=== PATIENT | female | born 1975 | race American Indian/Alaskan Native ===

== ENCOUNTER 2017-04-19 18:37 | Inpatient (IN) | payer OTHER ==
[2017-04-19 19:32] LABS: Hematocrit 36.6 % (30.3-42.9); Hemoglobin 12.3 gm/dl (10.1-14.3); Mean Corpuscular HGB Conc 34 % (30-34); Mean Corpuscular Hemoglobin 29 pg (28-32); Mean Corpuscular Volume 88 fl (79-97); Platelet Count 369 K/mm3 (140-440); Red Blood Count 4.18 M/mm3 (3.65-5.03); Red Cell Distribution Width 14.1 % (13.2-15.2); White Blood Count 17.7 K/mm3 (4.5-11.0)
[2017-04-19 19:48] LABS: Anion Gap 23 mmol/L; BUN/Creatinine Ratio 14; Blood Urea Nitrogen 7 mg/dL (7-17); Calcium 9.5 mg/dL (8.4-10.2); Carbon Dioxide 18 mmol/L (22-30); Chloride 97.4 mmol/L (98-107); Glucose 283 mg/dL (65-100); Potassium 3.2 mmol/L (3.6-5.0); Sodium 135 mmol/L (137-145)
--- NOTE | 2017-04-19 20:00 | Emergency Department Report ---
ED Psych HPI - General Chief Complaint: Psych Stated Complaint: SUICIDE ATTEMPT/ETOH Time Seen by Provider: 04/19/17 19:51 Source: patient, EMS Mode of arrival: Stretcher - History of Present Illness Initial Comments: Patient here after she was drinking took a handful of Advil Advil PM and some losartan here for evaluation of overdose and alcohol MD Complaint: suicidal ideation, feels depressed -: unknown Associated Psychiatric Symptoms: depression, suicidal ideation If Self Harm: admits thoughts of - Related Data Allergies Allergy/AdvReac Type Severity Reaction Status Date / Time metronidazole [From Flagyl] Allergy Unknown Verified 04/19/17 18:41 ED Review of Systems ROS: Stated complaint: SUICIDE ATTEMPT/ETOH Other details as noted in HPI Comment: Unobtainable due to pts medical conditions ED Past Medical Hx - Past Medical History Previous Medical History?: Yes Hx Hypertension: Yes - Social History Smoking Status: Unknown if ever smoked Substance Use Type: Alcohol ED Physical Exam - General Limitations: Altered Mental Status, Other - Head Head exam: Present: atraumatic - Eye Eye exam: Present: PERRL - Respiratory Respiratory exam: Absent: respiratory distress, accessory muscle use, decreased breath sounds - Cardiovascular Cardiovascular Exam: Present: regular rate, normal heart sounds - GI/Abdominal GI/Abdominal exam: Present: soft. Absent: distended, tenderness, guarding, rebound, rigid, mass - Rectal Rectal exam: Present: deferred - Back Exam Back exam: Present: normal inspection - Neurological Exam Neurological exam: Present: CN II-XII intact. Absent: motor sensory deficit - Skin Skin exam: Present: warm. Absent: urticaria ED Course Vital Signs 04/19/17 20:47 Pulse Rate 92 H Respiratory 21 Rate Blood Pressure 132/75 [Right] O2 Sat by Pulse 99 Oximetry - Reevaluation(s) Reevaluation #1: 04/19/17 21:19 Patient's case was discussed with poison center patient does admit Advil and advil pm and losartan/hctz at unknown time after drinking , here per ems on 1013 for psych eval and od Patient was noted to have repeat stable vital signs 1 3275 blood pressure 7% pulse is 92 respiration 21 EKG did show a prolonged QTC I did discuss case with poison center they are recommending admission given the prolonged half-life of the losartan and the risk of bottoming out her blood pressure as well as further evaluation of the prolonged QTC we will go ahead and give some potassium and check a mag and calcium level did discuss case Dr. Lerner was interventional radiologist for hospitalist service who will admit the patient ED Medical Decision Making - Lab Data Result diagrams: 04/19/17 19:19 04/19/17 19:19 - EKG Data -: EKG Interpreted by Me EKG shows normal: intervals (QTC prolongation), QRS complexes - Medical Decision Making Patient need admission for further evaluation of overdose with low bicarbonate aspirin and Tylenol levels negative patient will need correction of her potassium and further evaluation and observation Critical Care Time: Yes Critical care time in (mins) excluding proc time.: 30 Critical care attestation.: If time is entered above; I have spent that time in minutes in the direct care of this critically ill patient, excluding procedure time. ED Disposition Clinical Impression: Overdose Disposition: DC-[id number] OP ADMIT IP TO THIS HOSP Is pt being admited?: Yes Does the pt Need Aspirin: No Condition: Fair Time of Disposition: 21:25
[2017-04-19] MEDS ORDERED: HALDOL IM ONE (20:03)
[2017-04-19 20:09] LABS: Basophils % (Manual) 0 % (0.0-1.8); Blastocytes % (Manual) 0 %; Eosinophils % (Manual) 0 % (0.0-4.3)
[2017-04-19 20:10] LABS: Diff Status Complete; Large Platelets Few; RBC Morphology Normal
[2017-04-19 21:07] LABS: Urine Drugs of Abuse Note Disclamer
[2017-04-19] MEDS ORDERED: NACL 0.9% 1000 ML 1,000 ML IV ONE (21:10)
[2017-04-19 21:18] LABS: Bilirubin,Urine NEG (Negative); Blood,Urine NEG (Negative); Ketones,Urine TR mg/dL (Negative); Leukocyte Esterase,Urine NEG (Negative); Mucus,Urine FEW /HPF; Nitrite,Urine NEG (Negative)
[2017-04-19] MEDS ORDERED: TYLENOL PO PRN (21:40)
--- NOTE | 2017-04-19 21:43 | History and Physical Report ---
History of Present Illness Date of examination: 04/19/17 History of present illness: [id number] woman with multiple medical problems brought to emergency room because she took 5 Advil PM, unclear if she took any losartan and attempt to end her life. Patient is status post haldol, lethargic but arousable. History , Review Of Systems unable to obtain PAST MEDICAL HISTORY:none PAST SURGICAL HISTORY:none FAMILY HISTORY:Unknown SOCIAL HISTORY: Unknown Medications and Allergies Allergies Allergy/AdvReac Type Severity Reaction Status Date / Time metronidazole [From Flagyl] Allergy Unknown Verified 04/19/17 18:41 Active Meds: Active Medications Potassium Chloride (Kcl 10meq/100ml) 10 meq in 100 mls @ 100 mls/hr IV Q1H CHANTAL Stop: 04/19/17 23:59 Sodium Chloride (Nacl 0.9% 1000 Ml) 1,000 mls @ 999 mls/hr IV BOLUS ONE Stop: 04/19/17 22:10 Exam - Physical Exam Narrative exam: Gen. appearance: Patient lying in bed in no acute distress HEENT: Normocephalic/atraumatic, pupils equal round reactive to light, extra occular movement intact, no scleral icterus, no JVD or thyromegaly or nodule, neck is supple, mucous membrane moist, no erythema or exudate Heart: S1-S2, regular rate and rhythm Lungs: Clear to auscultation bilateral breathing comfortable Abdomen: Positive bowel sounds, nontender, nondistended, no organomegaly Extremities: No edema, cyanosis, clubbing Neuro:: lethargic Skin: No rash, nodules, warm dry - Constitutional Vitals: Temp Pulse Resp BP Pulse Ox 92 H 21 132/75 99 04/19/17 20:47 04/19/17 20:47 04/19/17 20:47 04/19/17 20:47 Results - Labs CBC & Chem 7: 04/20/17 04:06 04/20/17 04:57 Labs: Abnormal lab results 04/19/17 04/19/17 04/19/17 Range/Units 19:19 19:19 19:19 WBC (4.5-11.0) K/mm3 Lymphocytes % (Manual) (13.4-35.0) % Monocytes % (Manual) (0.0-7.3) % Seg Neutrophils # Man (1.8-7.7) K/mm3 Lymphocytes # (Manual) (1.2-5.4) K/mm3 Monocytes # (Manual) (0.0-0.8) K/mm3 Sodium 135 L (137-145) mmol/L Potassium 3.2 L (3.6-5.0) mmol/L Chloride 97.4 L (98-107) mmol/L Carbon Dioxide 18 L (22-30) mmol/L Creatinine 0.5 L (0.7-1.2) mg/dL Glucose 283 H (65-100) mg/dL Urine HCG, Qual (Negative) Salicylates < 0.3 L (2.8-20.0) mg/dL Plasma/Serum Alcohol 0.20 H (0-0.07) gm% 04/19/17 04/19/17 Range/Units 19:19 21:02 WBC 17.7 H (4.5-11.0) K/mm3 Lymphocytes % (Manual) 45.0 H (13.4-35.0) % Monocytes % (Manual) 9.0 H (0.0-7.3) % Seg Neutrophils # Man 8.1 H (1.8-7.7) K/mm3 Lymphocytes # (Manual) 8.0 H (1.2-5.4) K/mm3 Monocytes # (Manual) 1.6 H (0.0-0.8) K/mm3 Sodium (137-145) mmol/L Potassium (3.6-5.0) mmol/L Chloride (98-107) mmol/L Carbon Dioxide (22-30) mmol/L Creatinine (0.7-1.2) mg/dL Glucose (65-100) mg/dL Urine HCG, Qual Positive A (Negative) Salicylates (2.8-20.0) mg/dL Plasma/Serum Alcohol (0-0.07) gm% Assessment and Plan Assessment Drug overdose Suicide attempt Elevated blood sugar Leukocytosis most likely stress-induced Plan Admit medicine Start IV fluid, monitor on telemetry Check fingersticks, hemoglobin A1c Obtain blood cultures, start empiric Rocephin DVT prophylaxis
[2017-04-19] MEDS: KCL 10MEQ/100ML 10 MEQ/100 ML BAG IV SCH ×2 (21:44→23:55)
[2017-04-19] MEDS ORDERED: KCL 10MEQ/100ML 10 MEQ/100 ML BAG IV ONE (23:37)
[2017-04-19] MEDS: cefTRIAXone 1 GM in NACL 0.9% 20 ML IV SCH (23:54)
[2017-04-20] MEDS: CLARITIN PO PRN ×2 (02:28→10:37)
[2017-04-20] MEDS: NACL 0.9% 1000 ML 1,000 ML IV SCH ×2 (02:29→12:37)
[2017-04-20 04:49] LABS: Basophils % (Auto) 0.7 % (0.0-1.8); Eosinophils % (Auto) 1.6 % (0.0-4.3); Hematocrit 33.4 % (30.3-42.9); Hemoglobin 11.4 gm/dl (10.1-14.3); Mean Corpuscular HGB Conc 34 % (30-34); Mean Corpuscular Hemoglobin 29 pg (28-32); Mean Corpuscular Volume 86 fl (79-97); Platelet Count 306 K/mm3 (140-440); Red Blood Count 3.89 M/mm3 (3.65-5.03); Red Cell Distribution Width 14.2 % (13.2-15.2); White Blood Count 10.3 K/mm3 (4.5-11.0)
[2017-04-20 05:53] LABS: Anion Gap 25 mmol/L; BUN/Creatinine Ratio 13; Blood Urea Nitrogen 5 mg/dL (7-17); Calcium 8.9 mg/dL (8.4-10.2); Carbon Dioxide 17 mmol/L (22-30); Chloride 102.2 mmol/L (98-107); Glucose 139 mg/dL (65-100); Sodium 141 mmol/L (137-145)
--- NOTE | 2017-04-20 10:22 | Progress Note ---
Assessment and Plan Assessment and plan: --Positive test; quantitative hCG in thousands Check pelvic and transvaginal ultrasound [employer] RN consult, supportive care --Suicidal attempt; supportive care, 1013 status, psych evaluation --Alcohol intoxication; supportive care, strongly advised to quit alcohol intake --Hypertension; moderate control, continue current antihypertensives and when necessary medication --Morbid obesity counseling and patient advised diet modification and exercise as tolerated and weight reduction when medically stable --DVT prophylaxis; with Lovenox Follow CRITICAL CARE RN and psych evaluation and recommendations Continue 1013 status Possible discharge in 1-2 days if stable History Interval history: Patient seen and examined medical records reviewed Morbidly obese female patient was admitted with suicidal attempt and acute alcohol intoxication test is positive, Denies any knowledge of Alert awake oriented 3 not in acute distress Hospitalist Physical - Constitutional Vitals: Temp Pulse Resp BP Pulse Ox 97.4 F L 89 18 113/64 99 04/20/17 02:04 04/20/17 02:01 04/20/17 02:04 04/20/17 02:00 04/20/17 02:01 General appearance: Present: no acute distress, well-nourished, obese - EENT Eyes: Present: PERRL, EOM intact - Neck Neck: Present: supple, normal ROM - Respiratory Respiratory effort: normal Respiratory: bilateral: diminished, negative: rales, rhonchi, wheezing - Cardiovascular Rhythm: regular Heart Sounds: Present: S1 & S2 - Extremities Extremities: no ischemia, No edema - Abdominal General gastrointestinal: soft, non-tender, non-distended, normal bowel sounds - Integumentary Integumentary: Present: clear, warm - Psychiatric Psychiatric: appropriate mood/affect, cooperative - Neurologic Neurologic: CNII-XII intact, moves all extremities Results - Labs CBC & Chem 7: 04/20/17 04:06 04/20/17 04:57 Labs: Laboratory Last Values WBC 10.3 K/mm3 (4.5-11.0) 04/20/17 04:06 RBC 3.89 M/mm3 (3.65-5.03) 04/20/17 04:06 Hgb 11.4 gm/dl (10.1-14.3) 04/20/17 04:06 Hct 33.4 % (30.3-42.9) 04/20/17 04:06 MCV 86 fl (79-97) 04/20/17 04:06 MCH 29 pg (28-32) 04/20/17 04:06 MCHC 34 % (30-34) 04/20/17 04:06 RDW 14.2 % (13.2-15.2) 04/20/17 04:06 Plt Count 306 K/mm3 (140-440) 04/20/17 04:06 Lymph % (Auto) 36.0 % (13.4-35.0) H 04/20/17 04:06 [place] % (Auto) 8.6 % (0.0-7.3) H 04/20/17 04:06 Eos % (Auto) 1.6 % (0.0-4.3) 04/20/17 04:06 Baso % (Auto) 0.7 % (0.0-1.8) 04/20/17 04:06 Lymph # 3.7 K/mm3 (1.2-5.4) 04/20/17 04:06 [place] # 0.9 K/mm3 (0.0-0.8) H 04/20/17 04:06 Eos # 0.2 K/mm3 (0.0-0.4) 04/20/17 04:06 Baso # 0.1 K/mm3 (0.0-0.1) 04/20/17 04:06 Add Manual Diff Complete 04/19/17 19:19 Total Counted 100 04/19/17 19:19 Seg Neutrophils % 53.1 % (40.0-70.0) 04/20/17 04:06 Seg Neuts % (Manual) 46.0 % (40.0-70.0) 04/19/17 19:19 Band Neutrophils % 0 % 04/19/17 19:19 Lymphocytes % (Manual) 45.0 % (13.4-35.0) H 04/19/17 19:19 Reactive Lymphs % (Man) 0 % 04/19/17 19:19 Monocytes % (Manual) 9.0 % (0.0-7.3) H 04/19/17 19:19 Eosinophils % (Manual) 0 % (0.0-4.3) 04/19/17 19:19 Basophils % (Manual) 0 % (0.0-1.8) 04/19/17 19:19 Metamyelocytes % 0 % 04/19/17 19:19 Myelocytes % 0 % 04/19/17 19:19 Promyelocytes % 0 % 04/19/17 19:19 Blast Cells % 0 % 04/19/17 19:19 Nucleated RBC % Not Reportable 04/19/17 19:19 Seg Neutrophils # 5.5 K/mm3 (1.8-7.7) 04/20/17 04:06 Seg Neutrophils # Man 8.1 K/mm3 (1.8-7.7) H 04/19/17 19:19 Band Neutrophils # 0.0 K/mm3 04/19/17 19:19 Lymphocytes # (Manual) 8.0 K/mm3 (1.2-5.4) H 04/19/17 19:19 Abs React Lymphs (Man) 0.0 K/mm3 04/19/17 19:19 Monocytes # (Manual) 1.6 K/mm3 (0.0-0.8) H 04/19/17 19:19 Eosinophils # (Manual) 0.0 K/mm3 (0.0-0.4) 04/19/17 19:19 Basophils # (Manual) 0.0 K/mm3 (0.0-0.1) 04/19/17 19:19 Metamyelocytes # 0.0 K/mm3 04/19/17 19:19 Myelocytes # 0.0 K/mm3 04/19/17 19:19 Promyelocytes # 0.0 K/mm3 04/19/17 19:19 Blast Cells # 0.0 K/mm3 04/19/17 19:19 WBC Morphology Not Reportable 04/19/17 19:19 Hypersegmented Neuts Not Reportable 04/19/17 19:19 Hyposegmented Neuts Not Reportable 04/19/17 19:19 Hypogranular Neuts Not Reportable 04/19/17 19:19 Smudge Cells Not Reportable 04/19/17 19:19 Toxic Granulation Not Reportable 04/19/17 19:19 Toxic Vacuolation Not Reportable 04/19/17 19:19 Dohle Bodies Not Reportable 04/19/17 19:19 Pelger-Huet Anomaly Not Reportable 04/19/17 19:19 Gabbie Rods Not Reportable 04/19/17 19:19 Platelet Estimate Appears normal 04/19/17 19:19 Clumped Platelets Not Reportable 04/19/17 19:19 Plt Clumps, EDTA Not Reportable 04/19/17 19:19 Large Platelets Few 04/19/17 19:19 Giant Platelets Not Reportable 04/19/17 19:19 Platelet Satelliting Not Reportable 04/19/17 19:19 Plt Morphology Comment Not Reportable 04/19/17 19:19 RBC Morphology Normal 04/19/17 19:19 Dimorphic RBCs Not Reportable 04/19/17 19:19 Polychromasia Not Reportable 04/19/17 19:19 Hypochromasia Not Reportable 04/19/17 19:19 Poikilocytosis Not Reportable 04/19/17 19:19 Anisocytosis Not Reportable 04/19/17 19:19 Microcytosis Not Reportable 04/19/17 19:19 Macrocytosis Not Reportable 04/19/17 19:19 Spherocytes Not Reportable 04/19/17 19:19 Pappenheimer Bodies Not Reportable 04/19/17 19:19 Sickle Cells Not Reportable 04/19/17 19:19 Target Cells Not Reportable 04/19/17 19:19 Tear Drop Cells Not Reportable 04/19/17 19:19 Ovalocytes Not Reportable 04/19/17 19:19 Helmet Cells Not Reportable 04/19/17 19:19 [place] Bodies Not Reportable 04/19/17 19:19 [place] Rings Not Reportable 04/19/17 19:19 [place] Cells Not Reportable 04/19/17 19:19 Bite Cells Not Reportable 04/19/17 19:19 Crenated Cell Not Reportable 04/19/17 19:19 Elliptocytes Not Reportable 04/19/17 19:19 Acanthocytes (Spur) Not Reportable 04/19/17 19:19 Rouleaux Not Reportable 04/19/17 19:19 Hemoglobin C Crystals Not Reportable 04/19/17 19:19 Schistocytes Not Reportable 04/19/17 19:19 Malaria parasites Not Reportable 04/19/17 19:19 Blu Bodies Not Reportable 04/19/17 19:19 Hem Pathologist Commnt No 04/19/17 19:19 Sodium 141 mmol/L (137-145) 04/20/17 04:57 Potassium 3.0 mmol/L (3.6-5.0) L 04/20/17 04:57 Chloride 102.2 mmol/L (98-107) 04/20/17 04:57 Carbon Dioxide 17 mmol/L (22-30) L 04/20/17 04:57 Anion Gap 25 mmol/L 04/20/17 04:57 BUN 5 mg/dL (7-17) L 04/20/17 04:57 Creatinine 0.4 mg/dL (0.7-1.2) L 04/20/17 04:57 Estimated GFR > 60 ml/min 04/20/17 04:57 BUN/Creatinine Ratio 13 % 04/20/17 04:57 Glucose 139 mg/dL (65-100) H 04/20/17 04:57 Hemoglobin A1c 8.8 % (4-6) H 04/19/17 22:29 Osmolality 341 Mosm/kg 04/19/17 19:19 Calcium 8.9 mg/dL (8.4-10.2) 04/20/17 04:57 Magnesium 1.70 mg/dL (1.7-2.3) 04/19/17 19:19 Urine Color Yellow (Yellow) 04/19/17 21:02 Urine Turbidity Clear (Clear) 04/19/17 21:02 Urine pH 5.0 (5.0-7.0) 04/19/17 21:02 Ur Specific [place] 1.024 (1.003-1.030) 04/19/17 21:02 Urine Protein 30 mg/dl mg/dL (Negative) 04/19/17 21:02 Urine Glucose (UA) >=500 mg/dL (Negative) 04/19/17 21:02 Urine Ketones Tr mg/dL (Negative) 04/19/17 21:02 Urine Blood Neg (Negative) 04/19/17 21:02 Urine Nitrite Neg (Negative) 04/19/17 21:02 Urine Bilirubin Neg (Negative) 04/19/17 21:02 Urine Urobilinogen 2.0 mg/dL (<2.0) 04/19/17 21:02 Ur Leukocyte Esterase Neg (Negative) 04/19/17 21:02 Urine WBC (Auto) 4.0 /HPF (0.0-6.0) 04/19/17 21:02 Urine RBC (Auto) 2.0 /HPF (0.0-6.0) 04/19/17 21:02 U Epithel Cells (Auto) < 1.0 /HPF (0-13.0) 04/19/17 21:02 Urine Mucus Few /HPF 04/19/17 21:02 Urine HCG, Qual Positive (Negative) A 04/19/17 21:02 Salicylates < 0.3 mg/dL (2.8-20.0) L 04/19/17 21:29 Urine Opiates Screen Presumptive negative 04/19/17 21:02 Urine Methadone Screen Presumptive negative 04/19/17 21:02 Acetaminophen < 15.0 ug/mL (10.0-30.0) 04/19/17 21:29 Ur Barbiturates Screen Presumptive negative 04/19/17 21:02 Ur Phencyclidine Scrn Presumptive negative 04/19/17 21:02 Ur Amphetamines Screen Presumptive negative 04/19/17 21:02 U Benzodiazepines Scrn Presumptive negative 04/19/17 21:02 Urine Cocaine Screen Presumptive negative 04/19/17 21:02 U Marijuana (THC) Screen Presumptive negative 04/19/17 21:02 Drugs of Abuse Note Disclamer 04/19/17 21:02 Plasma/Serum Alcohol 0.20 gm% (0-0.07) H 04/19/17 19:19
[2017-04-20] MEDS: LOVENOX SUB-Q SCH (10:36)
[2017-04-20] MEDS ORDERED: K-DUR PO ONE (11:00)
[2017-04-20] MEDS: cefTRIAXone 1 GM in NACL 0.9% 20 ML IV SCH (12:39)
[2017-04-20] MEDS ORDERED: COZAAR PO SCH (13:00)
[2017-04-20] MEDS ORDERED: HCTZ PO SCH (13:00)
[2017-04-20] MEDS ORDERED: NORVASC PO SCH (13:00)
[2017-04-20] MEDS ORDERED: APRESOLINE IV PRN (13:37)
[2017-04-20] MEDS: APRESOLINE PO SCH ×2 (15:13→20:58)
--- NOTE | 2017-04-20 15:41 | Ultrasound Report ---
FINAL REPORT PROCEDURE: US OB > = 14 WEEKS FETUS TECHNIQUE: Real-time transabdominal sonography of the uterus, placenta, amniotic fluid, adnexa, and fetus was performed with image documentation. Measurements were obtained to determine age/size. M-mode Doppler was used to document heartbeat. CPT 49137 HISTORY: ? early /+ preg test COMPARISON: No prior studies are available for comparison. FINDINGS: There is a single living intrauterine gestation currently visualized in the transverse presentation head on the maternal left. heart rate of 155 beats per minute is detected. The amount of amniotic fluid subjectively appears normal. Normal amniotic fluid index measured at 12.1 centimeters. Placenta is located anterior grade 0. No evidence of placenta abruption or placenta previa. Cervix length 4.8 centimeters. Urinary bladder and stomach were visualized. Four-chamber view of the heart is unremarkable. Visualization of the spine is limited due to positioning. No gross abnormality is visualized. Cord insertion, three-vessel cord kidneys and intracranial contents as well as facial features were not seen today. MEASUREMENTS: BPD: 5.7 centimeters equals 23 week 2 days HC: 21.1 centimeter quit 23 week 1 day AC: 19.7 centimeter quit 24 week 3 days FL: 4.3 centimeter equals 23 weeks 6 days Estimated weight 654 grams +/-90 7 grams equals 1 pounds 7 ounces +/-3 ounces Average sonographic age by today's exam 23 week 5 days. This places EDC at 08/12/2017 +/-2 weeks. IMPRESSION: There is a single living intrauterine gestation currently transverse presentation head on the maternal left. Average sonographic age by today's exam 23 week 5 days placing the EDC at 08/12/2017 +/-2 weeks. Amount of amniotic fluid appears normal. No abnormalities are seen however visualization of the anatomy is limited. If clinically indicated follow-up exam could be performed to re-evaluate the anatomy.
[2017-04-20] MEDS: NOVOLOG SUB-Q SCH (22:43)
[2017-04-21] MEDS: APRESOLINE PO SCH ×5 (00:43→22:37)
[2017-04-21] MEDS: NACL 0.9% 1000 ML 1,000 ML IV SCH (02:47)
[2017-04-21] MEDS: NOVOLOG SUB-Q SCH ×3 (08:45→22:38)
[2017-04-21 10:16] LABS: Anion Gap 16 mmol/L; BUN/Creatinine Ratio 10; Blood Urea Nitrogen 4 mg/dL (7-17); Calcium 8.4 mg/dL (8.4-10.2); Carbon Dioxide 20 mmol/L (22-30); Glucose 150 mg/dL (65-100); Potassium 3.7 mmol/L (3.6-5.0); Sodium 136 mmol/L (137-145)
[2017-04-21] MEDS: LOVENOX SUB-Q SCH (10:40)
[2017-04-21] MEDS: ZOFRAN IV PRN (19:33)
--- NOTE | 2017-04-21 20:51 | Progress Note ---
Assessment and Plan Assessment and plan: --14 weeks ; continue supportive care Pending [facility] evaluation and recommendations --Hypertension; continue hydralazine by mouth, IV as needed --Suicide attempt; 1013 status, psych evaluation pending --Alcohol intoxication at the time of admission; patient now alert and awake Counseling done discussed the adverse effects of alcohol ,advised to quit alcohol Patient verbalized understanding --Morbid obesity counseling done --DVT prophylaxis; with Lovenox Follow [facility] [place] [place] and psych evaluation and recommendations Continue 1013 status Patient is medically stable for discharge Disposition per psych Plan of care discussed with the patient History Interval history: Patient seen and examined medical history is reviewed No new events reported by nursing staff Patient is 1, ultrasound consistent with 14 weeks fetus Pending [facility] [place] [place] evaluation . Patient has no new complaints Hospitalist Physical - Constitutional Vitals: Temp Pulse Resp BP Pulse Ox 98.3 F 90 18 157/101 100 04/21/17 19:52 04/21/17 19:52 04/21/17 19:52 04/21/17 19:52 04/21/17 19:52 General appearance: Present: no acute distress, well-nourished, obese - EENT Eyes: Present: PERRL, EOM intact - Neck Neck: Present: supple, normal ROM - Respiratory Respiratory effort: normal Respiratory: negative: rales, rhonchi, wheezing - Cardiovascular Rhythm: regular Heart Sounds: Present: S1 & S2 - Extremities Extremities: no ischemia, No edema - Abdominal General gastrointestinal: soft, non-tender, non-distended, normal bowel sounds - Integumentary Integumentary: Present: clear, warm - Psychiatric Psychiatric: appropriate mood/affect, cooperative - Neurologic Neurologic: CNII-XII intact, moves all extremities Results - Labs CBC & Chem 7: 04/20/17 04:06 04/21/17 09:46 Labs: Laboratory Last Values WBC 10.3 K/mm3 (4.5-11.0) 04/20/17 04:06 RBC 3.89 M/mm3 (3.65-5.03) 04/20/17 04:06 Hgb 11.4 gm/dl (10.1-14.3) 04/20/17 04:06 Hct 33.4 % (30.3-42.9) 04/20/17 04:06 MCV 86 fl (79-97) 04/20/17 04:06 MCH 29 pg (28-32) 04/20/17 04:06 MCHC 34 % (30-34) 04/20/17 04:06 RDW 14.2 % (13.2-15.2) 04/20/17 04:06 Plt Count 306 K/mm3 (140-440) 04/20/17 04:06 Lymph % (Auto) 36.0 % (13.4-35.0) H 04/20/17 04:06 [place] % (Auto) 8.6 % (0.0-7.3) H 04/20/17 04:06 Eos % (Auto) 1.6 % (0.0-4.3) 04/20/17 04:06 Baso % (Auto) 0.7 % (0.0-1.8) 04/20/17 04:06 Lymph # 3.7 K/mm3 (1.2-5.4) 04/20/17 04:06 [place] # 0.9 K/mm3 (0.0-0.8) H 04/20/17 04:06 Eos # 0.2 K/mm3 (0.0-0.4) 04/20/17 04:06 Baso # 0.1 K/mm3 (0.0-0.1) 04/20/17 04:06 Add Manual Diff Complete 04/19/17 19:19 Total Counted 100 04/19/17 19:19 Seg Neutrophils % 53.1 % (40.0-70.0) 04/20/17 04:06 Seg Neuts % (Manual) 46.0 % (40.0-70.0) 04/19/17 19:19 Band Neutrophils % 0 % 04/19/17 19:19 Lymphocytes % (Manual) 45.0 % (13.4-35.0) H 04/19/17 19:19 Reactive Lymphs % (Man) 0 % 04/19/17 19:19 Monocytes % (Manual) 9.0 % (0.0-7.3) H 04/19/17 19:19 Eosinophils % (Manual) 0 % (0.0-4.3) 04/19/17 19:19 Basophils % (Manual) 0 % (0.0-1.8) 04/19/17 19:19 Metamyelocytes % 0 % 04/19/17 19:19 Myelocytes % 0 % 04/19/17 19:19 Promyelocytes % 0 % 04/19/17 19:19 Blast Cells % 0 % 04/19/17 19:19 Nucleated RBC % Not Reportable 04/19/17 19:19 Seg Neutrophils # 5.5 K/mm3 (1.8-7.7) 04/20/17 04:06 Seg Neutrophils # Man 8.1 K/mm3 (1.8-7.7) H 04/19/17 19:19 Band Neutrophils # 0.0 K/mm3 04/19/17 19:19 Lymphocytes # (Manual) 8.0 K/mm3 (1.2-5.4) H 04/19/17 19:19 Abs React Lymphs (Man) 0.0 K/mm3 04/19/17 19:19 Monocytes # (Manual) 1.6 K/mm3 (0.0-0.8) H 04/19/17 19:19 Eosinophils # (Manual) 0.0 K/mm3 (0.0-0.4) 04/19/17 19:19 Basophils # (Manual) 0.0 K/mm3 (0.0-0.1) 04/19/17 19:19 Metamyelocytes # 0.0 K/mm3 04/19/17 19:19 Myelocytes # 0.0 K/mm3 04/19/17 19:19 Promyelocytes # 0.0 K/mm3 04/19/17 19:19 Blast Cells # 0.0 K/mm3 04/19/17 19:19 WBC Morphology Not Reportable 04/19/17 19:19 Hypersegmented Neuts Not Reportable 04/19/17 19:19 Hyposegmented Neuts Not Reportable 04/19/17 19:19 Hypogranular Neuts Not Reportable 04/19/17 19:19 Smudge Cells Not Reportable 04/19/17 19:19 Toxic Granulation Not Reportable 04/19/17 19:19 Toxic Vacuolation Not Reportable 04/19/17 19:19 Dohle Bodies Not Reportable 04/19/17 19:19 Pelger-Huet Anomaly Not Reportable 04/19/17 19:19 Gabbie Rods Not Reportable 04/19/17 19:19 Platelet Estimate Appears normal 04/19/17 19:19 Clumped Platelets Not Reportable 04/19/17 19:19 Plt Clumps, EDTA Not Reportable 04/19/17 19:19 Large Platelets Few 04/19/17 19:19 Giant Platelets Not Reportable 04/19/17 19:19 Platelet Satelliting Not Reportable 04/19/17 19:19 Plt Morphology Comment Not Reportable 04/19/17 19:19 RBC Morphology Normal 04/19/17 19:19 Dimorphic RBCs Not Reportable 04/19/17 19:19 Polychromasia Not Reportable 04/19/17 19:19 Hypochromasia Not Reportable 04/19/17 19:19 Poikilocytosis Not Reportable 04/19/17 19:19 Anisocytosis Not Reportable 04/19/17 19:19 Microcytosis Not Reportable 04/19/17 19:19 Macrocytosis Not Reportable 04/19/17 19:19 Spherocytes Not Reportable 04/19/17 19:19 Pappenheimer Bodies Not Reportable 04/19/17 19:19 Sickle Cells Not Reportable 04/19/17 19:19 Target Cells Not Reportable 04/19/17 19:19 Tear Drop Cells Not Reportable 04/19/17 19:19 Ovalocytes Not Reportable 04/19/17 19:19 Helmet Cells Not Reportable 04/19/17 19:19 Garvin-Agar Bodies Not Reportable 04/19/17 19:19 [place] Rings Not Reportable 04/19/17 19:19 [place] Cells Not Reportable 04/19/17 19:19 Bite Cells Not Reportable 04/19/17 19:19 Crenated Cell Not Reportable 04/19/17 19:19 Elliptocytes Not Reportable 04/19/17 19:19 Acanthocytes (Spur) Not Reportable 04/19/17 19:19 Rouleaux Not Reportable 04/19/17 19:19 Hemoglobin C Crystals Not Reportable 04/19/17 19:19 Schistocytes Not Reportable 04/19/17 19:19 Malaria parasites Not Reportable 04/19/17 19:19 Blu Bodies Not Reportable 04/19/17 19:19 Hem Pathologist Commnt No 04/19/17 19:19 Sodium 136 mmol/L (137-145) L 04/21/17 09:46 Potassium 3.7 mmol/L (3.6-5.0) D 04/21/17 09:46 Chloride 104.0 mmol/L (98-107) 04/21/17 09:46 Carbon Dioxide 20 mmol/L (22-30) L 04/21/17 09:46 Anion Gap 16 mmol/L 04/21/17 09:46 BUN 4 mg/dL (7-17) L 04/21/17 09:46 Creatinine 0.4 mg/dL (0.7-1.2) L 04/21/17 09:46 Estimated GFR > 60 ml/min 04/21/17 09:46 BUN/Creatinine Ratio 10 % 04/21/17 09:46 Glucose 150 mg/dL (65-100) H 04/21/17 09:46 POC Glucose 127 (70-105) H 04/21/17 12:25 Hemoglobin A1c 8.8 % (4-6) H 04/19/17 22:29 Osmolality 341 Mosm/kg 04/19/17 19:19 Calcium 8.4 mg/dL (8.4-10.2) 04/21/17 09:46 Magnesium 1.70 mg/dL (1.7-2.3) 04/19/17 19:19 HCG, Quant 9462 mIU/mL (0-4) H 04/20/17 10:26 Urine Color Yellow (Yellow) 04/19/17 21:02 Urine Turbidity Clear (Clear) 04/19/17 21:02 Urine pH 5.0 (5.0-7.0) 04/19/17 21:02 Ur Specific [place] 1.024 (1.003-1.030) 04/19/17 21:02 Urine Protein 30 mg/dl mg/dL (Negative) 04/19/17 21:02 Urine Glucose (UA) >=500 mg/dL (Negative) 04/19/17 21:02 Urine Ketones Tr mg/dL (Negative) 04/19/17 21:02 Urine Blood Neg (Negative) 04/19/17 21:02 Urine Nitrite Neg (Negative) 04/19/17 21:02 Urine Bilirubin Neg (Negative) 04/19/17 21:02 Urine Urobilinogen 2.0 mg/dL (<2.0) 04/19/17 21:02 Ur Leukocyte Esterase Neg (Negative) 04/19/17 21:02 Urine WBC (Auto) 4.0 /HPF (0.0-6.0) 04/19/17 21:02 Urine RBC (Auto) 2.0 /HPF (0.0-6.0) 04/19/17 21:02 U Epithel Cells (Auto) < 1.0 /HPF (0-13.0) 04/19/17 21:02 Urine Mucus Few /HPF 04/19/17 21:02 Urine HCG, Qual Positive (Negative) A 04/19/17 21:02 Salicylates < 0.3 mg/dL (2.8-20.0) L 04/19/17 21:29 Urine Opiates Screen Presumptive negative 04/19/17 21:02 Urine Methadone Screen Presumptive negative 04/19/17 21:02 Acetaminophen < 15.0 ug/mL (10.0-30.0) 04/19/17 21:29 Ur Barbiturates Screen Presumptive negative 04/19/17 21:02 Ur Phencyclidine Scrn Presumptive negative 04/19/17 21:02 Ur Amphetamines Screen Presumptive negative 04/19/17 21:02 U Benzodiazepines Scrn Presumptive negative 04/19/17 21:02 Urine Cocaine Screen Presumptive negative 04/19/17 21:02 U Marijuana (THC) Screen Presumptive negative 04/19/17 21:02 Drugs of Abuse Note Disclamer 04/19/17 21:02 Plasma/Serum Alcohol 0.20 gm% (0-0.07) H 04/19/17 19:19
[2017-04-22] MEDS: APRESOLINE PO SCH ×3 (08:17→21:51)
[2017-04-22] MEDS: NOVOLOG SUB-Q SCH ×3 (09:00→21:42)
--- NOTE | 2017-04-22 11:24 | Consultation ---
History of Present Illness - Reason for Consult Consult date: 04/22/17 Reason for consult: Mental Health Evaluation Requesting physician: MAHESH MARTINEZ - Chief Complaint Chief complaint: "I didn't try to harm myself" - History of Present Psychiatric Illness 41 y.o. AA female presenting to [facility] for taking multiple Advil pills. Today patient is calm and cooperative during the assessment. She stated having marital problems with her . She would not elaborate when asked to tell more about what is going on with her marriage. Per the data analytics specialist's note, its been infidelity in the marriage by the per the patient. Per the data analytics specialist 's note, the patient wanted to end her life when she took the Advil pills. She denies wanting to kill herself during our interview. She stated that she took 5 Advil pills to sleep, because she wanted some rest. She denies being depressed or having any prior manic episodes in the last couple days. She denies a mental health dx. She denies ever wanting to kill herself in the past. She admit to drinking alcohol when she took the pills. She denies recreational drug use. Medications and Allergies Allergies Allergy/AdvReac Type Severity Reaction Status Date / Time metronidazole [From Flagyl] Allergy Unknown Verified 04/19/17 18:41 Home Medications Medication Instructions Recorded Confirmed Last Taken Type Amlodipine Besylate [Norvasc] 10 mg PO DAILY 04/20/17 04/22/17 1 Day Ago History ~04/21/17 Losartan/Hydrochlorothiazide 1 each PO DAILY 04/20/17 04/22/17 1 Day Ago History [Losartan-Hctz 100-25 mg Tab] ~04/21/17 glipiZIDE [Glipizide] 10 mg PO DAILY 04/20/17 04/22/17 1 Day Ago History ~04/21/17 Active Meds: Active Medications Acetaminophen (Tylenol) 650 mg PO Q4H PRN PRN Reason: Pain MILD(1-3)/Fever >100.5/GONZALEZ Enoxaparin Sodium (Lovenox) 40 mg SUB-Q QDAY [facility] Last Admin: 04/21/17 10:40 Dose: 40 mg Hydralazine HCl (Apresoline) 10 mg IV Q4HR PRN PRN Reason: Hypertension >160/90 Hydralazine HCl (Apresoline) 25 mg PO Q8HR [facility] Insulin Aspart (Novolog) 0 units SUB-Q ACHS [facility] PRN Reason: Protocol Last Admin: 04/21/17 22:38 Dose: Not Given Ondansetron HCl (Zofran) 4 mg IV Q8H PRN PRN Reason: N/V unrelieved by Sophia Last Admin: 04/21/17 19:33 Dose: 4 mg Past psychiatric history - Past Medical History Past Medical History: other (14 weeks ) Past Surgical History: No surgical history - past Psychiatric treatment and history psychiatric treatment history: Denies a psy hx and afm psy hx. - Social History Social history: lives with family Mental Status Exam - Vital signs Last Vital Signs Temp 98.7 F 04/22/17 07:28 Pulse 91 H 04/22/17 08:17 Resp 20 04/22/17 07:28 BP 164/63 04/22/17 08:17 Pulse Ox 98 04/22/17 07:28 - Exam Narrative exam: MSE: Appearance: calm, cooperative Behavior: regular eye contact Speech: regular rate and tone Mood: "okay" Affect: congruent to mood Thought Process: circumstantial Thought Content: denies SI/HI's and AVH's Motor Activity: sitting up in bed Cognition: A/O x3 Insight: variable Judgment: variable Results Result Diagrams: 04/20/17 04:06 04/21/17 09:46 Abnormal lab results 04/21/17 04/21/17 04/21/17 Range/Units 07:20 12:25 16:39 POC Glucose 125 H 127 H 120 H (70-105) 04/21/17 04/22/17 Range/Units 21:37 09:44 POC Glucose 146 H 168 H (70-105) All other labs normal. Assessment and Plan Assessment and plan: Impression: Today patient is calm and cooperative during the assessment. Overdose attempt by taking 5 Advil pills. Patient is 14 weeks . Alcohol serum 0.20 on admission. DDx: R/O Mood DO, R/O Alcohol induced Mood DO Recommendation/Plan: Continue 1013 with placement to inpatient psy services. Gather collateral information from her spouse.
--- NOTE | 2017-04-22 14:24 | Consultation ---
History of Present Illness Consult date: 04/22/17 Requesting physician: MAHESH MARTINEZ Reason for consult: other ( ) History of present illness: Thank you kindly for the consult. Pt is a 41 year old female with LMP November 2016 who was initially admitted for suicide attempt with Tylenol PM and alcohol consumption after argument with her on 04/19/17. During her evaluation, a test was noted to be positive. An obstetric ultrasound was subsequently performed on 04/19/17 which showed a viable [place] IUP at 23w5d in transverse presentation; SAVAGE 12 cm; Anterior grade 0 placenta without evidence of abruption or previa, with cervical length 4.8 cm. Upon further questioning, the patient does report breast tenderness, amenorrhea and nausea but she did not attribute them to a possible . She denies vaginal bleeding, leakage of fluid or contractions. She now reports movement since this hospital admission. The patient has not been taking her anti -hypertensives at home, and has not seen a dragger recently since her move from [place], [place] to [place] two years ago. She has no family other than her here in [place]. She is excited to be and denies any desire to harm herself or commit suicide today. Past History Past Medical History: hypertension, diabetes, other (morbid obesity ) Past Surgical History: cholecystectomy, other (partial colectomy secondary to frequent diverticulitis; resolved after surgery ) Family/Genetic History: heart disease, hypertension Social history: no significant social history, - Obstetrical History Expected Date of Delivery: 08/12/17 Actual Gestation: 24 Week(s) 0 Day(s) Medications and Allergies Allergies Allergy/AdvReac Type Severity Reaction Status Date / Time metronidazole [From Flagyl] Allergy Unknown Verified 04/19/17 18:41 Home Medications Medication Instructions Recorded Confirmed Last Taken Type Amlodipine Besylate [Norvasc] 10 mg PO DAILY 04/20/17 04/22/17 1 Day Ago History ~04/21/17 Losartan/Hydrochlorothiazide 1 each PO DAILY 04/20/17 04/22/17 1 Day Ago History [Losartan-Hctz 100-25 mg Tab] ~04/21/17 glipiZIDE [Glipizide] 10 mg PO DAILY 04/20/17 04/22/17 1 Day Ago History ~04/21/17 Active Meds: Active Medications Acetaminophen (Tylenol) 650 mg PO Q4H PRN PRN Reason: Pain MILD(1-3)/Fever >100.5/GONZALEZ Enoxaparin Sodium (Lovenox) 40 mg SUB-Q QDAY [facility] Last Admin: 04/21/17 10:40 Dose: 40 mg Hydralazine HCl (Apresoline) 10 mg IV Q4HR PRN PRN Reason: Hypertension >160/90 Hydralazine HCl (Apresoline) 25 mg PO Q8HR [facility] Insulin Aspart (Novolog) 0 units SUB-Q ACHS [facility] PRN Reason: Protocol Last Admin: 04/21/17 22:38 Dose: Not Given Ondansetron HCl (Zofran) 4 mg IV Q8H PRN PRN Reason: N/V unrelieved by Sophia Last Admin: 04/21/17 19:33 Dose: 4 mg Review of Systems All systems: negative Gastrointestinal: nausea (per HPI ) - Vital Signs Vital signs: Vital Signs Pulse Resp Pulse Ox 129 H 25 H 97 04/19/17 19:18 04/19/17 19:18 04/19/17 19:18 Temp Pulse Resp BP Pulse Ox 98.7 F 91 H 20 164/63 98 04/22/17 07:28 04/22/17 08:17 04/22/17 07:28 04/22/17 08:17 04/22/17 07:28 - Physical Exam Breasts: Positive: deferred Cardiovascular: Regular rate Lungs: Positive: Clear to auscultation Abdomen: Positive: soft (obese ). Negative: tenderness Extremities: Positive: edema (pedal ) - Obstetrical FHR: auscultation normal Results Result Diagrams: 04/20/17 04:06 04/21/17 09:46 Abnormal lab results 04/21/17 04/21/17 04/22/17 Range/Units 16:39 21:37 09:44 POC Glucose 120 H 146 H 168 H (70-105) All other labs normal. Assessment and Plan A: Recently diagnosed intrauterine at 24w0d Recent suicide attempt with Tylenol PM and Alcohol Morbid Obesity Chronic Hypertension Pregestational Diabetes Mellitus Advanced Maternal Age Alcohol exposure Insufficient Care P: Currently, the patient does not have any reason to delay hospital discharge. While she is hospitalized, she should have heart tonees (please call labor and delivery nurse to perform) q 8 hrs. Ultrasound now to confirm viability Optimize anti-hypertensives preferrably with Labetalol, Methyldopa or Procardia XL Optimize blood glucose with insulin. Avoid oral hypoglycemics during . Pt should check fasting and two hour postprandials and keep a record of them vitamin daily Once discharged pt should establish care with co-management with maternal- medicine secondary to multiple comorbidities. Pt has been given contact information for [place] [facility] [employer]. Please contact me if any further information is needed.
--- NOTE | 2017-04-22 15:35 | Ultrasound Report ---
ULTRASOUND OB LIMITED History: well being Technique: Transabdominal ultrasound with Doppler interrogation. Gestation: Single Position: Breech Heart Rate: 154 BPM
--- NOTE | 2017-04-22 16:44 | Progress Note ---
Assessment and Plan Assessment and plan: --14 weeks ; continue supportive care BUSINESS SOLUTIONS ARCHITECT evaluation and recommendations noted and appreciated --Hypertension; continue hydralazine by mouth, IV as needed --Suicide attempt; 1013 status, psych recommends transfer to inpatient psych when medically stable --Alcohol intoxication at the time of admission; patient now alert and awake Counseling done discussed the adverse effects of alcohol ,advised to quit alcohol --Morbid obesity counseling done --DVT prophylaxis; with Lovenox Continue 1013 status Patient is medically stable for discharge Disposition psych recommends to continue 1013, transfer to inpatient psych when medically stable Plan of care discussed with the patient History Interval history: Patient seen and evaluated this morning medical records reviewed Patient feels better I discussed the case with psych PA, the patient is medically cleared Psych recommends inpatient psych transfer for further evaluation and management Patient is anxious to go home No new complaints Hospitalist Physical - Constitutional Vitals: Temp Pulse Resp BP Pulse Ox 98.7 F 91 H 20 164/63 98 04/22/17 07:28 04/22/17 08:17 04/22/17 07:28 04/22/17 08:17 04/22/17 07:28 General appearance: Present: no acute distress, well-nourished, obese - EENT Eyes: Present: PERRL, EOM intact - Neck Neck: Present: supple, normal ROM - Respiratory Respiratory effort: normal Respiratory: negative: rales, rhonchi, wheezing - Cardiovascular Rhythm: regular Heart Sounds: Present: S1 & S2 - Extremities Extremities: no ischemia, No edema - Abdominal General gastrointestinal: soft, non-tender, non-distended, normal bowel sounds - Integumentary Integumentary: Present: clear, warm - Psychiatric Psychiatric: appropriate mood/affect, cooperative - Neurologic Neurologic: CNII-XII intact, moves all extremities Results - Labs CBC & Chem 7: 04/20/17 04:06 04/21/17 09:46 Labs: Laboratory Last Values WBC 10.3 K/mm3 (4.5-11.0) 04/20/17 04:06 RBC 3.89 M/mm3 (3.65-5.03) 04/20/17 04:06 Hgb 11.4 gm/dl (10.1-14.3) 04/20/17 04:06 Hct 33.4 % (30.3-42.9) 04/20/17 04:06 MCV 86 fl (79-97) 04/20/17 04:06 MCH 29 pg (28-32) 04/20/17 04:06 MCHC 34 % (30-34) 04/20/17 04:06 RDW 14.2 % (13.2-15.2) 04/20/17 04:06 Plt Count 306 K/mm3 (140-440) 04/20/17 04:06 Lymph % (Auto) 36.0 % (13.4-35.0) H 04/20/17 04:06 [place] % (Auto) 8.6 % (0.0-7.3) H 04/20/17 04:06 Eos % (Auto) 1.6 % (0.0-4.3) 04/20/17 04:06 Baso % (Auto) 0.7 % (0.0-1.8) 04/20/17 04:06 Lymph # 3.7 K/mm3 (1.2-5.4) 04/20/17 04:06 [place] # 0.9 K/mm3 (0.0-0.8) H 04/20/17 04:06 Eos # 0.2 K/mm3 (0.0-0.4) 04/20/17 04:06 Baso # 0.1 K/mm3 (0.0-0.1) 04/20/17 04:06 Add Manual Diff Complete 04/19/17 19:19 Total Counted 100 04/19/17 19:19 Seg Neutrophils % 53.1 % (40.0-70.0) 04/20/17 04:06 Seg Neuts % (Manual) 46.0 % (40.0-70.0) 04/19/17 19:19 Band Neutrophils % 0 % 04/19/17 19:19 Lymphocytes % (Manual) 45.0 % (13.4-35.0) H 04/19/17 19:19 Reactive Lymphs % (Man) 0 % 04/19/17 19:19 Monocytes % (Manual) 9.0 % (0.0-7.3) H 04/19/17 19:19 Eosinophils % (Manual) 0 % (0.0-4.3) 04/19/17 19:19 Basophils % (Manual) 0 % (0.0-1.8) 04/19/17 19:19 Metamyelocytes % 0 % 04/19/17 19:19 Myelocytes % 0 % 04/19/17 19:19 Promyelocytes % 0 % 04/19/17 19:19 Blast Cells % 0 % 04/19/17 19:19 Nucleated RBC % Not Reportable 04/19/17 19:19 Seg Neutrophils # 5.5 K/mm3 (1.8-7.7) 04/20/17 04:06 Seg Neutrophils # Man 8.1 K/mm3 (1.8-7.7) H 04/19/17 19:19 Band Neutrophils # 0.0 K/mm3 04/19/17 19:19 Lymphocytes # (Manual) 8.0 K/mm3 (1.2-5.4) H 04/19/17 19:19 Abs React Lymphs (Man) 0.0 K/mm3 04/19/17 19:19 Monocytes # (Manual) 1.6 K/mm3 (0.0-0.8) H 04/19/17 19:19 Eosinophils # (Manual) 0.0 K/mm3 (0.0-0.4) 04/19/17 19:19 Basophils # (Manual) 0.0 K/mm3 (0.0-0.1) 04/19/17 19:19 Metamyelocytes # 0.0 K/mm3 04/19/17 19:19 Myelocytes # 0.0 K/mm3 04/19/17 19:19 Promyelocytes # 0.0 K/mm3 04/19/17 19:19 Blast Cells # 0.0 K/mm3 04/19/17 19:19 WBC Morphology Not Reportable 04/19/17 19:19 Hypersegmented Neuts Not Reportable 04/19/17 19:19 Hyposegmented Neuts Not Reportable 04/19/17 19:19 Hypogranular Neuts Not Reportable 04/19/17 19:19 Smudge Cells Not Reportable 04/19/17 19:19 Toxic Granulation Not Reportable 04/19/17 19:19 Toxic Vacuolation Not Reportable 04/19/17 19:19 Dohle Bodies Not Reportable 04/19/17 19:19 Pelger-Huet Anomaly Not Reportable 04/19/17 19:19 Gabbie Rods Not Reportable 04/19/17 19:19 Platelet Estimate Appears normal 04/19/17 19:19 Clumped Platelets Not Reportable 04/19/17 19:19 Plt Clumps, EDTA Not Reportable 04/19/17 19:19 Large Platelets Few 04/19/17 19:19 Giant Platelets Not Reportable 04/19/17 19:19 Platelet Satelliting Not Reportable 04/19/17 19:19 Plt Morphology Comment Not Reportable 04/19/17 19:19 RBC Morphology Normal 04/19/17 19:19 Dimorphic RBCs Not Reportable 04/19/17 19:19 Polychromasia Not Reportable 04/19/17 19:19 Hypochromasia Not Reportable 04/19/17 19:19 Poikilocytosis Not Reportable 04/19/17 19:19 Anisocytosis Not Reportable 04/19/17 19:19 Microcytosis Not Reportable 04/19/17 19:19 Macrocytosis Not Reportable 04/19/17 19:19 Spherocytes Not Reportable 04/19/17 19:19 Pappenheimer Bodies Not Reportable 04/19/17 19:19 Sickle Cells Not Reportable 04/19/17 19:19 Target Cells Not Reportable 04/19/17 19:19 Tear Drop Cells Not Reportable 04/19/17 19:19 Ovalocytes Not Reportable 04/19/17 19:19 Helmet Cells Not Reportable 04/19/17 19:19 [place] Bodies Not Reportable 04/19/17 19:19 [place] Rings Not Reportable 04/19/17 19:19 [place] Cells Not Reportable 04/19/17 19:19 Bite Cells Not Reportable 04/19/17 19:19 Crenated Cell Not Reportable 04/19/17 19:19 Elliptocytes Not Reportable 04/19/17 19:19 Acanthocytes (Spur) Not Reportable 04/19/17 19:19 Rouleaux Not Reportable 04/19/17 19:19 Hemoglobin C Crystals Not Reportable 04/19/17 19:19 Schistocytes Not Reportable 04/19/17 19:19 Malaria parasites Not Reportable 04/19/17 19:19 Blu Bodies Not Reportable 04/19/17 19:19 Hem Pathologist Commnt No 04/19/17 19:19 Sodium 136 mmol/L (137-145) L 04/21/17 09:46 Potassium 3.7 mmol/L (3.6-5.0) D 04/21/17 09:46 Chloride 104.0 mmol/L (98-107) 04/21/17 09:46 Carbon Dioxide 20 mmol/L (22-30) L 04/21/17 09:46 Anion Gap 16 mmol/L 04/21/17 09:46 BUN 4 mg/dL (7-17) L 04/21/17 09:46 Creatinine 0.4 mg/dL (0.7-1.2) L 04/21/17 09:46 Estimated GFR > 60 ml/min 04/21/17 09:46 BUN/Creatinine Ratio 10 % 04/21/17 09:46 Glucose 150 mg/dL (65-100) H 04/21/17 09:46 POC Glucose 168 (70-105) H 04/22/17 09:44 Hemoglobin A1c 8.8 % (4-6) H 04/19/17 22:29 Osmolality 341 Mosm/kg 04/19/17 19:19 Calcium 8.4 mg/dL (8.4-10.2) 04/21/17 09:46 Magnesium 1.70 mg/dL (1.7-2.3) 04/19/17 19:19 HCG, Quant 9462 mIU/mL (0-4) H 04/20/17 10:26 Urine Color Yellow (Yellow) 04/19/17 21:02 Urine Turbidity Clear (Clear) 04/19/17 21:02 Urine pH 5.0 (5.0-7.0) 04/19/17 21:02 Ur Specific [place] 1.024 (1.003-1.030) 04/19/17 21:02 Urine Protein 30 mg/dl mg/dL (Negative) 04/19/17 21:02 Urine Glucose (UA) >=500 mg/dL (Negative) 04/19/17 21:02 Urine Ketones Tr mg/dL (Negative) 04/19/17 21:02 Urine Blood Neg (Negative) 04/19/17 21:02 Urine Nitrite Neg (Negative) 04/19/17 21:02 Urine Bilirubin Neg (Negative) 04/19/17 21:02 Urine Urobilinogen 2.0 mg/dL (<2.0) 12/15/17 21:02 Ur Leukocyte Esterase Neg (Negative) 04/19/17 21:02 Urine WBC (Auto) 4.0 /HPF (0.0-6.0) 04/19/17 21:02 Urine RBC (Auto) 2.0 /HPF (0.0-6.0) 04/19/17 21:02 U Epithel Cells (Auto) < 1.0 /HPF (0-13.0) 04/19/17 21:02 Urine Mucus Few /HPF 04/19/17 21:02 Urine HCG, Qual Positive (Negative) A 04/19/17 21:02 Salicylates < 0.3 mg/dL (2.8-20.0) L 04/19/17 21:29 Urine Opiates Screen Presumptive negative 04/19/17 21:02 Urine Methadone Screen Presumptive negative 04/19/17 21:02 Acetaminophen < 15.0 ug/mL (10.0-30.0) 04/19/17 21:29 Ur Barbiturates Screen Presumptive negative 04/19/17 21:02 Ur Phencyclidine Scrn Presumptive negative 04/19/17 21:02 Ur Amphetamines Screen Presumptive negative 04/19/17 21:02 U Benzodiazepines Scrn Presumptive negative 04/19/17 21:02 Urine Cocaine Screen Presumptive negative 04/19/17 21:02 U Marijuana (THC) Screen Presumptive negative 04/19/17 21:02 Drugs of Abuse Note Disclamer 04/19/17 21:02 Plasma/Serum Alcohol 0.20 gm% (0-0.07) H 04/19/17 19:19
[2017-04-22] MEDS: LOVENOX SUB-Q SCH (16:45)
[2017-04-22] MEDS: ZOFRAN IV PRN (23:51)
[2017-04-23] MEDS: APRESOLINE PO SCH ×3 (08:46→21:51)
[2017-04-23] MEDS: NOVOLOG SUB-Q SCH ×4 (08:46→21:54)
--- NOTE | 2017-04-23 09:10 | Progress Note ---
Subjective - Reason for Consult Consult date: 04/23/17 Reason for consult: Psychiatry Follow-up - Chief Complaint Chief complaint: "Good morning" 41 y.o. AA female presenting to [facility] for taking multiple Advil pills. Today patient is calm and cooperative during the assessment. She stated doing some reflecting of her life since her admission. She stated that she does not consume alcohol, but was in the "moment" prior to her admission to [facility]. She stated that she would like to be referred to a therapist once she is discharged. She stated, "I have a long road ahead of me." She is adamant that she didn't know she was prior to her admission. She denies SI/HI's and AVH's. She stated sleeping well last night. Mental Status Exam - Vital signs Last Vital Signs Temp 98.3 F 04/23/17 07:28 Pulse 95 H 04/23/17 08:39 Resp 18 04/23/17 07:28 BP 141/76 04/23/17 07:28 Pulse Ox 99 04/23/17 07:28 - Exam Narrative exam: MSE: Appearance: calm, cooperative Behavior: regular eye contact Speech: regular rate and tone Mood: "okay" Affect: congruent to mood Thought Process: linear Thought Content: denies SI/HI's and AVH's Motor Activity: sitting up in bed Cognition: A/O x3 Insight: fair Judgment: fair Assessment and Plan Impression: Overdose of Advil pills (5). Marital problems with her spouse. Today patient is calm and cooperative during the assessment. Per FIELD TECHNICAL SPECIALIST - obstetric ultrasound was subsequently performed on 04/19/17 which showed a viable [place] IUP at 23w5d in transverse presentation. Alcohol serum 0.20 on admission. DDx: R/O Mood DO, R/O Alcohol induced Mood DO Recommendation/Plan: Continue 1013 with placement to inpatient psy services. Discussed generalized coping skills with patient. Discussed the importance to abstain from alcohol consumption while .
[2017-04-23] MEDS: LOVENOX SUB-Q SCH (10:44)
[2017-04-23] MEDS: PRENATAL VITAMIN PO SCH (10:45)
--- NOTE | 2017-04-23 15:06 | Progress Note ---
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 --Hypertension; well controlled continue hydralazine by mouth, IV as needed --Alcohol intoxication at the time of admission; stable, adversed to quit alcohol intake, --Morbid obesity counseling done --DVT prophylaxis; with Lovenox Continue 1013 status Patient is medically stable for discharge 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 Disposition per psych,recommends to continue 1013, transfer to inpatient psych Plan of care discussed with the patient History Interval history: Patient seen and evaluated medical records reviewed On events reported HORSE EXERCISER evaluation noted Medically, gynecological history stable for discharge Patient is on 1013 status, psych following Hospitalist Physical - Constitutional Vitals: Temp Pulse Resp BP Pulse Ox 98.3 F 95 H 18 141/76 99 04/23/17 07:28 04/23/17 08:39 04/23/17 07:28 04/23/17 07:28 04/23/17 07:28 General appearance: Present: no acute distress, well-nourished, obese - EENT Eyes: Present: PERRL, EOM intact - Neck Neck: Present: supple, normal ROM - Respiratory Respiratory effort: normal Respiratory: bilateral: diminished, negative: rales, rhonchi, wheezing - Cardiovascular Rhythm: regular Heart Sounds: Present: S1 & S2 - Extremities Extremities: no ischemia, pulses intact Peripheral Pulses: within normal limits - Abdominal General gastrointestinal: soft, non-tender, non-distended, normal bowel sounds - Integumentary Integumentary: Present: clear, warm - Psychiatric Psychiatric: appropriate mood/affect, cooperative - Neurologic Neurologic: CNII-XII intact, moves all extremities Results - Labs CBC & Chem 7: 04/20/17 04:06 04/21/17 09:46 Labs: Laboratory Last Values WBC 10.3 K/mm3 (4.5-11.0) 04/20/17 04:06 RBC 3.89 M/mm3 (3.65-5.03) 04/20/17 04:06 Hgb 11.4 gm/dl (10.1-14.3) 04/20/17 04:06 Hct 33.4 % (30.3-42.9) 04/20/17 04:06 MCV 86 fl (79-97) 04/20/17 04:06 MCH 29 pg (28-32) 04/20/17 04:06 MCHC 34 % (30-34) 04/20/17 04:06 RDW 14.2 % (13.2-15.2) 04/20/17 04:06 Plt Count 306 K/mm3 (140-440) 04/20/17 04:06 Lymph % (Auto) 36.0 % (13.4-35.0) H 04/20/17 04:06 [place] % (Auto) 8.6 % (0.0-7.3) H 04/20/17 04:06 Eos % (Auto) 1.6 % (0.0-4.3) 04/20/17 04:06 Baso % (Auto) 0.7 % (0.0-1.8) 04/20/17 04:06 Lymph # 3.7 K/mm3 (1.2-5.4) 04/20/17 04:06 [place] # 0.9 K/mm3 (0.0-0.8) H 04/20/17 04:06 Eos # 0.2 K/mm3 (0.0-0.4) 04/20/17 04:06 Baso # 0.1 K/mm3 (0.0-0.1) 04/20/17 04:06 Add Manual Diff Complete 04/19/17 19:19 Total Counted 100 04/19/17 19:19 Seg Neutrophils % 53.1 % (40.0-70.0) 04/20/17 04:06 Seg Neuts % (Manual) 46.0 % (40.0-70.0) 04/19/17 19:19 Band Neutrophils % 0 % 04/19/17 19:19 Lymphocytes % (Manual) 45.0 % (13.4-35.0) H 04/19/17 19:19 Reactive Lymphs % (Man) 0 % 04/19/17 19:19 Monocytes % (Manual) 9.0 % (0.0-7.3) H 04/19/17 19:19 Eosinophils % (Manual) 0 % (0.0-4.3) 04/19/17 19:19 Basophils % (Manual) 0 % (0.0-1.8) 04/19/17 19:19 Metamyelocytes % 0 % 04/19/17 19:19 Myelocytes % 0 % 04/19/17 19:19 Promyelocytes % 0 % 04/19/17 19:19 Blast Cells % 0 % 04/19/17 19:19 Nucleated RBC % Not Reportable 04/19/17 19:19 Seg Neutrophils # 5.5 K/mm3 (1.8-7.7) 04/20/17 04:06 Seg Neutrophils # Man 8.1 K/mm3 (1.8-7.7) H 04/19/17 19:19 Band Neutrophils # 0.0 K/mm3 04/19/17 19:19 Lymphocytes # (Manual) 8.0 K/mm3 (1.2-5.4) H 04/19/17 19:19 Abs React Lymphs (Man) 0.0 K/mm3 04/19/17 19:19 Monocytes # (Manual) 1.6 K/mm3 (0.0-0.8) H 04/19/17 19:19 Eosinophils # (Manual) 0.0 K/mm3 (0.0-0.4) 04/19/17 19:19 Basophils # (Manual) 0.0 K/mm3 (0.0-0.1) 04/19/17 19:19 Metamyelocytes # 0.0 K/mm3 04/19/17 19:19 Myelocytes # 0.0 K/mm3 04/19/17 19:19 Promyelocytes # 0.0 K/mm3 04/19/17 19:19 Blast Cells # 0.0 K/mm3 04/19/17 19:19 WBC Morphology Not Reportable 04/19/17 19:19 Hypersegmented Neuts Not Reportable 04/19/17 19:19 Hyposegmented Neuts Not Reportable 04/19/17 19:19 Hypogranular Neuts Not Reportable 04/19/17 19:19 Smudge Cells Not Reportable 04/19/17 19:19 Toxic Granulation Not Reportable 04/19/17 19:19 Toxic Vacuolation Not Reportable 04/19/17 19:19 Dohle Bodies Not Reportable 04/19/17 19:19 Pel[place]uet Anomaly Not Reportable 04/19/17 19:19 Gabbie Rods Not Reportable 04/19/17 19:19 Platelet Estimate Appears normal 04/19/17 19:19 Clumped Platelets Not Reportable 04/19/17 19:19 Plt Clumps, EDTA Not Reportable 04/19/17 19:19 Large Platelets Few 04/19/17 19:19 Giant Platelets Not Reportable 04/19/17 19:19 Platelet Satelliting Not Reportable 04/19/17 19:19 Plt Morphology Comment Not Reportable 04/19/17 19:19 RBC Morphology Normal 04/19/17 19:19 Dimorphic RBCs Not Reportable 04/19/17 19:19 Polychromasia Not Reportable 04/19/17 19:19 Hypochromasia Not Reportable 04/19/17 19:19 Poikilocytosis Not Reportable 04/19/17 19:19 Anisocytosis Not Reportable 04/19/17 19:19 Microcytosis Not Reportable 04/19/17 19:19 Macrocytosis Not Reportable 04/19/17 19:19 Spherocytes Not Reportable 04/19/17 19:19 Pappenheimer Bodies Not Reportable 04/19/17 19:19 Sickle Cells Not Reportable 04/19/17 19:19 Target Cells Not Reportable 04/19/17 19:19 Tear Drop Cells Not Reportable 04/19/17 19:19 Ovalocytes Not Reportable 04/19/17 19:19 Helmet Cells Not Reportable 04/19/17 19:19 [place] Bodies Not Reportable 04/19/17 19:19 [place] Rings Not Reportable 04/19/17 19:19 [place] Cells Not Reportable 04/19/17 19:19 Bite Cells Not Reportable 04/19/17 19:19 Crenated Cell Not Reportable 04/19/17 19:19 Elliptocytes Not Reportable 04/19/17 19:19 Acanthocytes (Spur) Not Reportable 04/19/17 19:19 Rouleaux Not Reportable 04/19/17 19:19 Hemoglobin C Crystals Not Reportable 04/19/17 19:19 Schistocytes Not Reportable 04/19/17 19:19 Malaria parasites Not Reportable 04/19/17 19:19 Blu Bodies Not Reportable 04/19/17 19:19 Hem Pathologist Commnt No 04/19/17 19:19 Sodium 136 mmol/L (137-145) L 04/21/17 09:46 Potassium 3.7 mmol/L (3.6-5.0) D 04/21/17 09:46 Chloride 104.0 mmol/L (98-107) 04/21/17 09:46 Carbon Dioxide 20 mmol/L (22-30) L 04/21/17 09:46 Anion Gap 16 mmol/L 04/21/17 09:46 BUN 4 mg/dL (7-17) L 04/21/17 09:46 Creatinine 0.4 mg/dL (0.7-1.2) L 04/21/17 09:46 Estimated GFR > 60 ml/min 04/21/17 09:46 BUN/Creatinine Ratio 10 % 04/21/17 09:46 Glucose 150 mg/dL (65-100) H 04/21/17 09:46 POC Glucose 159 (70-105) H 04/22/17 21:50 Hemoglobin A1c 8.8 % (4-6) H 04/19/17 22:29 Osmolality 341 Mosm/kg 04/19/17 19:19 Calcium 8.4 mg/dL (8.4-10.2) 04/21/17 09:46 Magnesium 1.70 mg/dL (1.7-2.3) 04/19/17 19:19 HCG, Quant 9462 mIU/mL (0-4) H 04/20/17 10:26 Urine Color Yellow (Yellow) 04/19/17 21:02 Urine Turbidity Clear (Clear) 04/19/17 21:02 Urine pH 5.0 (5.0-7.0) 04/19/17 21:02 Ur Specific [place] 1.024 (1.003-1.030) 04/19/17 21:02 Urine Protein 30 mg/dl mg/dL (Negative) 04/19/17 21:02 Urine Glucose (UA) >=500 mg/dL (Negative) 04/19/17 21:02 Urine Ketones Tr mg/dL (Negative) 04/19/17 21:02 Urine Blood Neg (Negative) 04/19/17 21:02 Urine Nitrite Neg (Negative) 04/19/17 21:02 Urine Bilirubin Neg (Negative) 04/19/17 21:02 Urine Urobilinogen 2.0 mg/dL (<2.0) 04/19/17 21:02 Ur Leukocyte Esterase Neg (Negative) 04/19/17 21:02 Urine WBC (Auto) 4.0 /HPF (0.0-6.0) 04/19/17 21:02 Urine RBC (Auto) 2.0 /HPF (0.0-6.0) 04/19/17 21:02 U Epithel Cells (Auto) < 1.0 /HPF (0-13.0) 04/19/17 21:02 Urine Mucus Few /HPF 04/19/17 21:02 Urine HCG, Qual Positive (Negative) A 04/19/17 21:02 Salicylates < 0.3 mg/dL (2.8-20.0) L 04/19/17 21:29 Urine Opiates Screen Presumptive negative 04/19/17 21:02 Urine Methadone Screen Presumptive negative 04/19/17 21:02 Acetaminophen < 15.0 ug/mL (10.0-30.0) 04/19/17 21:29 Ur Barbiturates Screen Presumptive negative 04/19/17 21:02 Ur Phencyclidine Scrn Presumptive negative 04/19/17 21:02 Ur Amphetamines Screen Presumptive negative 04/19/17 21:02 U Benzodiazepines Scrn Presumptive negative 04/19/17 21:02 Urine Cocaine Screen Presumptive negative 04/19/17 21:02 U Marijuana (THC) Screen Presumptive negative 04/19/17 21:02 Drugs of Abuse Note Disclamer 04/19/17 21:02 Plasma/Serum Alcohol 0.20 gm% (0-0.07) H 04/19/17 19:19
[2017-04-24] MEDS: APRESOLINE PO SCH ×3 (06:51→22:18)
[2017-04-24] MEDS: NOVOLOG SUB-Q SCH ×4 (08:54→22:38)
[2017-04-24] MEDS: LOVENOX SUB-Q SCH (10:55)
[2017-04-24] MEDS: PRENATAL VITAMIN PO SCH (10:56)
--- NOTE | 2017-04-24 15:17 | Progress Note ---
Assessment and Plan Assessment and plan: --Suicide attempt; 1013 status, psych recommends transfer to inpatient psych when medically stable Patient feels better ,no suicidal thoughts or ideation --14 weeks ; continue supportive care FINANCIAL ANALYSIS CONSULTANT evaluated and advised outpatient follow-up --Hypertension; well controlled continue hydralazine by mouth, IV as needed --Alcohol intoxication at the time of admission; stable, adversed to quit alcohol intake, --Morbid obesity counseling done --DVT prophylaxis; with Lovenox 1013 status per psych Patient is medically stable for discharge 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 continue 1013 , transfer to inpatient psych Plan of care discussed with the patient History Interval history: Patient seen and evaluated medical records reviewed Feels better no new complaints Anxious to go home Vital signs reviewed Hospitalist Physical - Constitutional Vitals: Temp Pulse Resp BP Pulse Ox 98.7 F 88 18 124/67 99 04/24/17 05:00 04/24/17 10:00 04/24/17 05:00 04/24/17 05:00 04/24/17 10:00 General appearance: Present: no acute distress, well-nourished, obese - EENT Eyes: Present: PERRL, EOM intact - Neck Neck: Present: supple, normal ROM - Respiratory Respiratory effort: normal Respiratory: bilateral: diminished, negative: rales, rhonchi, wheezing - Cardiovascular Rhythm: regular Heart Sounds: Present: S1 & S2 - Extremities Extremities: no ischemia, No edema - Abdominal General gastrointestinal: soft, non-tender, non-distended, normal bowel sounds - Integumentary Integumentary: Present: clear, warm - Psychiatric Psychiatric: appropriate mood/affect, cooperative - Neurologic Neurologic: CNII-XII intact, moves all extremities Results - Labs CBC & Chem 7: 04/20/17 04:06 04/21/17 09:46 Labs: Laboratory Last Values WBC 10.3 K/mm3 (4.5-11.0) 04/20/17 04:06 RBC 3.89 M/mm3 (3.65-5.03) 04/20/17 04:06 Hgb 11.4 gm/dl (10.1-14.3) 04/20/17 04:06 Hct 33.4 % (30.3-42.9) 04/20/17 04:06 MCV 86 fl (79-97) 04/20/17 04:06 MCH 29 pg (28-32) 04/20/17 04:06 MCHC 34 % (30-34) 04/20/17 04:06 RDW 14.2 % (13.2-15.2) 04/20/17 04:06 Plt Count 306 K/mm3 (140-440) 04/20/17 04:06 Lymph % (Auto) 36.0 % (13.4-35.0) H 04/20/17 04:06 Maury % (Auto) 8.6 % (0.0-7.3) H 04/20/17 04:06 Eos % (Auto) 1.6 % (0.0-4.3) 04/20/17 04:06 Baso % (Auto) 0.7 % (0.0-1.8) 04/20/17 04:06 Lymph # 3.7 K/mm3 (1.2-5.4) 04/20/17 04:06 Maury # 0.9 K/mm3 (0.0-0.8) H 04/20/17 04:06 Eos # 0.2 K/mm3 (0.0-0.4) 04/20/17 04:06 Baso # 0.1 K/mm3 (0.0-0.1) 04/20/17 04:06 Add Manual Diff Complete 04/19/17 19:19 Total Counted 100 04/19/17 19:19 Seg Neutrophils % 53.1 % (40.0-70.0) 04/20/17 04:06 Seg Neuts % (Manual) 46.0 % (40.0-70.0) 04/19/17 19:19 Band Neutrophils % 0 % 04/19/17 19:19 Lymphocytes % (Manual) 45.0 % (13.4-35.0) H 04/19/17 19:19 Reactive Lymphs % (Man) 0 % 04/19/17 19:19 Monocytes % (Manual) 9.0 % (0.0-7.3) H 04/19/17 19:19 Eosinophils % (Manual) 0 % (0.0-4.3) 04/19/17 19:19 Basophils % (Manual) 0 % (0.0-1.8) 04/19/17 19:19 Metamyelocytes % 0 % 04/19/17 19:19 Myelocytes % 0 % 04/19/17 19:19 Promyelocytes % 0 % 04/19/17 19:19 Blast Cells % 0 % 04/19/17 19:19 Nucleated RBC % Not Reportable 04/19/17 19:19 Seg Neutrophils # 5.5 K/mm3 (1.8-7.7) 04/20/17 04:06 Seg Neutrophils # Man 8.1 K/mm3 (1.8-7.7) H 04/19/17 19:19 Band Neutrophils # 0.0 K/mm3 04/19/17 19:19 Lymphocytes # (Manual) 8.0 K/mm3 (1.2-5.4) H 04/19/17 19:19 Abs React Lymphs (Man) 0.0 K/mm3 04/19/17 19:19 Monocytes # (Manual) 1.6 K/mm3 (0.0-0.8) H 04/19/17 19:19 Eosinophils # (Manual) 0.0 K/mm3 (0.0-0.4) 04/19/17 19:19 Basophils # (Manual) 0.0 K/mm3 (0.0-0.1) 04/19/17 19:19 Metamyelocytes # 0.0 K/mm3 04/19/17 19:19 Myelocytes # 0.0 K/mm3 04/19/17 19:19 Promyelocytes # 0.0 K/mm3 04/19/17 19:19 Blast Cells # 0.0 K/mm3 04/19/17 19:19 WBC Morphology Not Reportable 04/19/17 19:19 Hypersegmented Neuts Not Reportable 04/19/17 19:19 Hyposegmented Neuts Not Reportable 04/19/17 19:19 Hypogranular Neuts Not Reportable 04/19/17 19:19 Smudge Cells Not Reportable 04/19/17 19:19 Toxic Granulation Not Reportable 04/19/17 19:19 Toxic Vacuolation Not Reportable 04/19/17 19:19 Dohle Bodies Not Reportable 04/19/17 19:19 Pelger-Huet Anomaly Not Reportable 04/19/17 19:19 Gabbie Rods Not Reportable 04/19/17 19:19 Platelet Estimate Appears normal 04/19/17 19:19 Clumped Platelets Not Reportable 04/19/17 19:19 Plt Clumps, EDTA Not Reportable 04/19/17 19:19 Large Platelets Few 04/19/17 19:19 Giant Platelets Not Reportable 04/19/17 19:19 Platelet Satelliting Not Reportable 04/19/17 19:19 Plt Morphology Comment Not Reportable 04/19/17 19:19 RBC Morphology Normal 04/19/17 19:19 Dimorphic RBCs Not Reportable 04/19/17 19:19 Polychromasia Not Reportable 04/19/17 19:19 Hypochromasia Not Reportable 04/19/17 19:19 Poikilocytosis Not Reportable 04/19/17 19:19 Anisocytosis Not Reportable 04/19/17 19:19 Microcytosis Not Reportable 04/19/17 19:19 Macrocytosis Not Reportable 04/19/17 19:19 Spherocytes Not Reportable 04/19/17 19:19 Pappenheimer Bodies Not Reportable 04/19/17 19:19 Sickle Cells Not Reportable 04/19/17 19:19 Target Cells Not Reportable 04/19/17 19:19 Tear Drop Cells Not Reportable 04/19/17 19:19 Ovalocytes Not Reportable 04/19/17 19:19 Helmet Cells Not Reportable 04/19/17 19:19 [place] Bodies Not Reportable 04/19/17 19:19 [place] Rings Not Reportable 04/19/17 19:19 Hoven Cells Not Reportable 04/19/17 19:19 Bite Cells Not Reportable 04/19/17 19:19 Crenated Cell Not Reportable 04/19/17 19:19 Elliptocytes Not Reportable 04/19/17 19:19 Acanthocytes (Spur) Not Reportable 04/19/17 19:19 Rouleaux Not Reportable 04/19/17 19:19 Hemoglobin C Crystals Not Reportable 04/19/17 19:19 Schistocytes Not Reportable 04/19/17 19:19 Malaria parasites Not Reportable 04/19/17 19:19 Blu Bodies Not Reportable 04/19/17 19:19 Hem Pathologist Commnt No 04/19/17 19:19 Sodium 136 mmol/L (137-145) L 04/21/17 09:46 Potassium 3.7 mmol/L (3.6-5.0) D 04/21/17 09:46 Chloride 104.0 mmol/L (98-107) 04/21/17 09:46 Carbon Dioxide 20 mmol/L (22-30) L 04/21/17 09:46 Anion Gap 16 mmol/L 04/21/17 09:46 BUN 4 mg/dL (7-17) L 04/21/17 09:46 Creatinine 0.4 mg/dL (0.7-1.2) L 04/21/17 09:46 Estimated GFR > 60 ml/min 04/21/17 09:46 BUN/Creatinine Ratio 10 % 04/21/17 09:46 Glucose 150 mg/dL (65-100) H 04/21/17 09:46 POC Glucose 171 (70-105) H 04/24/17 07:17 Hemoglobin A1c 8.8 % (4-6) H 04/19/17 22:29 Osmolality 341 Mosm/kg 04/19/17 19:19 Calcium 8.4 mg/dL (8.4-10.2) 04/21/17 09:46 Magnesium 1.70 mg/dL (1.7-2.3) 04/19/17 19:19 HCG, Quant 9462 mIU/mL (0-4) H 04/20/17 10:26 Urine Color Yellow (Yellow) 04/19/17 21:02 Urine Turbidity Clear (Clear) 04/19/17 21:02 Urine pH 5.0 (5.0-7.0) 04/19/17 21:02 Ur Specific [place] 1.024 (1.003-1.030) 04/19/17 21:02 Urine Protein 30 mg/dl mg/dL (Negative) 04/19/17 21:02 Urine Glucose (UA) >=500 mg/dL (Negative) 04/19/17 21:02 Urine Ketones Tr mg/dL (Negative) 04/19/17 21:02 Urine Blood Neg (Negative) 04/19/17 21:02 Urine Nitrite Neg (Negative) 04/19/17 21:02 Urine Bilirubin Neg (Negative) 04/19/17 21:02 Urine Urobilinogen 2.0 mg/dL (<2.0) 04/19/17 21:02 Ur Leukocyte Esterase Neg (Negative) 04/19/17 21:02 Urine WBC (Auto) 4.0 /HPF (0.0-6.0) 04/19/17 21:02 Urine RBC (Auto) 2.0 /HPF (0.0-6.0) 04/19/17 21:02 U Epithel Cells (Auto) < 1.0 /HPF (0-13.0) 04/19/17 21:02 Urine Mucus Few /HPF 04/19/17 21:02 Urine HCG, Qual Positive (Negative) A 04/19/17 21:02 Salicylates < 0.3 mg/dL (2.8-20.0) L 04/19/17 21:29 Urine Opiates Screen Presumptive negative 04/19/17 21:02 Urine Methadone Screen Presumptive negative 04/19/17 21:02 Acetaminophen < 15.0 ug/mL (10.0-30.0) 04/19/17 21:29 Ur Barbiturates Screen Presumptive negative 04/19/17 21:02 Ur Phencyclidine Scrn Presumptive negative 04/19/17 21:02 Ur Amphetamines Screen Presumptive negative 04/19/17 21:02 U Benzodiazepines Scrn Presumptive negative 04/19/17 21:02 Urine Cocaine Screen Presumptive negative 04/19/17 21:02 U Marijuana (THC) Screen Presumptive negative 04/19/17 21:02 Drugs of Abuse Note Disclamer 04/19/17 21:02 Plasma/Serum Alcohol 0.20 gm% (0-0.07) H 04/19/17 19:19
[2017-04-25] MEDS: APRESOLINE PO SCH ×3 (06:39→22:28)
[2017-04-25] MEDS: NOVOLOG SUB-Q SCH ×4 (08:31→22:21)
[2017-04-25] MEDS: LOVENOX SUB-Q SCH (09:40)
[2017-04-25] MEDS: PRENATAL VITAMIN PO SCH (09:40)
--- NOTE | 2017-04-25 16:49 | Progress Note ---
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 continue 1013 , transfer to inpatient psych Plan of care discussed with the patient Subjective Date of service: 04/25/17 Objective - Constitutional Vitals: Vital Signs - 12hr 04/25/17 04/25/17 04/25/17 07:48 15:59 16:00 Temperature 99.4 F 98.4 F Pulse Rate 95 H 98 H Respiratory 20 18 Rate Blood Pressure 144/82 136/85 O2 Sat by Pulse 99 99 Oximetry General appearance: Present: no acute distress, well-nourished - EENT Eyes: PERRL, EOM intact ENT: hearing intact, clear oral mucosa Ears: bilateral: normal - Neck Neck: supple, normal ROM - Respiratory Respiratory effort: normal Respiratory: bilateral: CTA - Breasts Breasts: normal - Cardiovascular Rhythm: regular Heart Sounds: Present: S1 & S2. Absent: gallop, rub Extremities: pulses intact, No edema, normal color, Full ROM - Gastrointestinal General gastrointestinal: Present: soft, non-tender, non-distended, normal bowel sounds - Genitourinary Female genitourinary: normal - Integumentary Integumentary: clear, warm, dry - Musculoskeletal Musculoskeletal: 1, strength equal bilaterally - Neurologic Neurologic: moves all extremities - Psychiatric Psychiatric: memory intact, appropriate mood/affect, intact judgment & insight - Labs CBC & Chem 7: 04/20/17 04:06 04/21/17 09:46 Labs: Abnormal lab results 04/24/17 04/24/17 04/24/17 Range/Units 11:50 16:22 21:39 POC Glucose 190 H 112 H 189 H (70-105) 04/25/17 04/25/17 Range/Units 05:43 11:51 POC Glucose 136 H 137 H (70-105)
--- NOTE | 2017-04-25 18:09 | Progress Note ---
Subjective - Reason for Consult Consult date: 04/25/17 Reason for consult: Psychiatry Follow-up - Chief Complaint Chief complaint: "Hello" 41 y.o. AA female presenting to [facility] for taking multiple Advil pills. Today patient is calm and cooperative during the assessment. Per collateral information from her closest friend and eligibility supervisor Vicky Back at [phone], she stated that the patient was having crisis because her was "cheating " prior to her admission to the hospital. She stated that the patient didn't know she was until she was admitted to the hospital. She stated to the best of her knowledge, the patient does not have a mental health dx and never attempted suicide in the past. She stated that the patient do not have a hx of alcoholism. She stated that she can pick the patient up once discharged. The patient denies SI/HI's and AVH's. She stated that she look forward to being a new mom. Mental Status Exam - Vital signs Last Vital Signs Temp 98.4 F 04/25/17 15:59 Pulse 98 H 04/25/17 16:00 Resp 18 04/25/17 15:59 BP 136/85 04/25/17 15:59 Pulse Ox 99 04/25/17 16:00 - Exam Narrative exam: MSE: Appearance: calm, cooperative Behavior: regular eye contact Speech: regular rate and tone Mood: "okay" Affect: congruent to mood Thought Process: linear Thought Content: denies SI/HI's and AVH's Motor Activity: sitting up in bed Cognition: A/O x3 Insight: appropriate Judgment: appropriate Assessment and Plan Impression: Overdose of Advil pills (5). Marital problems with her spouse. Today patient is calm and cooperative during the assessment. Per FLUTE POLISHER - obstetric ultrasound was subsequently performed on 04/19/17 which showed a viable willingham IUP at 23w5d in transverse presentation. Patient is no threat to self. DDx: R/O Mood DO, R/O Alcohol induced Mood DO I. This screening and assessment is based on information collected from the following sources: II. SUICIDE RISK SCREENING (within last 30 days): A.) Suicidal thoughts/behaviors: Yes SUICIDE RISK ASSESSMENT III. FACTORS THAT INCREASE RISK: A.) Demographic and Substance Use Factors: Intoxicated (Alcohol) on admission B.) Current/Recent Factors (within past 3 months): Psychosocial/Environmental Factors: Marital Problems Physical Illness: No illness, patient informed on this admission she is 24w5d Cognitive/Psychological Factors: None C.) Historical Factors: None D.) Diagnostic/Symptom/Treatment Factors: None E.) Acute Risk Factor Severity (DESC; MILD/MOD/SEVERE): Mild Other factors for this individual that increase risk: None IV. FACTORS THAT DECREASE RISK: Resilience/Protective Factors: Patient want to decrease her stress Other factors for this individual that decrease risk: Patient denies a desire to harm self V. Clinician's Formulation of Risk and Determination of level of Care: This is a 41-year-old female who is experiencing marital problems with her spouse. Patient overdosed on multiple Advil pills prior to her admission to the hospital. She is aware her actions wasn't the right thing to do. She stated that she been reflecting on her behavior and stated, "This will not happen again." She stated that she will seek therapy once discharged from the hospital. Since being hospitalized the patient has consistently denied the desire to harm herself. Additionally, she has become insightful about how to better address her current issues. Patient is not impaired by substance. She is able to take care of her ADLs and is not at imminent risk of harm to self or others. Consequently, it is the opinion of the treatment team that the patient is at low risk of suicide and does not meet criteria to continue an involuntary psychiatric hold. Estimation of Imminent Risk: Low due to the above explanation. Determination of Level of Care based on Suicide Risk: Outpatient follow-up. Narrative description of clinical reasoning. (This must be completed on all patients): . Plan and Interventions based on Suicide Risk: This patient will likely be stepped down to an outpatient mental health center in the community upon discharge and follow-up within 7 days of her discharge from the hospital. VII. Discharge/After Hours Support Plan: Patient can return back to the ER, call 911 or crisis line if symptoms of depression, anxiety, suicidality return. Recommendation/Plan: Rescind 1013. Discussed generalized coping skills with patient. Discussed the importance to abstain from alcohol consumption while . Patient given outpatient referral services for the [facility]. Patient prefer therapy at this time. Patient can be discharged to her friend Vicky Back [phone].
[2017-04-26] MEDS: APRESOLINE PO SCH (06:33)
[2017-04-26] MEDS: NOVOLOG SUB-Q SCH (07:57)
--- NOTE | 2017-04-26 09:32 | Discharge Summary ---
Providers - Providers Date of Admission: 04/19/17 21:40 Date of discharge: 04/26/17 Attending physician: LILIANA BARBER 04/19/17 21:40 Consult to Mental Health [CONS] Routine Reason For Exam: SI Place consult to:: psych Notified:: Meaghan QUINTANILLA Phone number called:: [phone]. [phone] Was contact made?: Yes If yes, spoke with:: Leonel-mental health Time called:: 09:24 04/20/17 13:09 Consult to Physician [CONS] Routine Consulting Provider: AROLDO SHRESTHA Reason For Exam: positive preg test/?early preg Place consult to:: engineer booster and exhauster Notified:: office Phone number called:: [phone] Was contact made?: Yes If yes, spoke with:: Dr Shrestha Time called:: 09:13 04/25/17 16:51 Consult to Mental Health [CONS] Routine Reason For Exam: inpatient psych placement Place consult to:: y Primary care physician: CLAIMS ADMINISTRATOR Hospitalization Condition: Fair Hospital course: 41 y.o. AA female presenting to [facility] for taking multiple Advil pills. Today patient is calm and cooperative during the assessment. Per collateral information from her closest friend and broiler supervisor Vicky Back at [phone], she stated that the patient was having crisis because her was "cheating " prior to her admission to the hospital. She stated that the patient didn't know she was until she was admitted to the hospital. She stated to the best of her knowledge, the patient does not have a mental health dx. She stated that she can pick the patient up once discharged. The patient denies SI/HI's and AVH's. She stated that she look forward to being a new mom. - Vital signs at discharge Last Vital Signs Temp 98.4 F 04/25/17 15:59 Pulse 98 H 04/25/17 16:00 Resp 18 04/25/17 15:59 BP 136/85 04/25/17 15:59 Pulse Ox 99 04/25/17 16:00 - Exam Narrative exam: MSE: Appearance: calm, cooperative Behavior: regular eye contact Speech: regular rate and tone Mood: "okay" Affect: congruent to mood Thought Process: linear Thought Content: denies SI/HI's and AVH's Motor Activity: sitting up in bed Cognition: A/O x3 Insight: appropriate Judgment: appropriate Assessment and Plan Impression: Overdose of Advil pills (5). Marital problems with her spouse. Today patient is calm and cooperative during the assessment. Per CHECK WRITER SALESPERSON - obstetric ultrasound was subsequently performed on 04/19/17 which showed a viable [place] IUP at 23w5d in transverse presentation. Patient is no threat to self. DDx: R/O Mood DO, R/O Alcohol induced Mood DO I. This screening and assessment is based on information collected from the following sources: II. SUICIDE RISK SCREENING (within last 30 days): A.) Suicidal thoughts/behaviors: Yes SUICIDE RISK ASSESSMENT III. FACTORS THAT INCREASE RISK: A.) Demographic and Substance Use Factors: Alcohol B.) Current/Recent Factors (within past 3 months): Psychosocial/Environmental Factors: Marital Problems Physical Illness: No illness, patient informed on this admission she is 24w5d Cognitive/Psychological Factors: None C.) Historical Factors: None D.) Diagnostic/Symptom/Treatment Factors: None E.) Acute Risk Factor Severity (DESC; MILD/MOD/SEVERE): Mild Other factors for this individual that increase risk: None IV. FACTORS THAT DECREASE RISK: Resilience/Protective Factors: Patient want to decrease her stress Other factors for this individual that decrease risk: Patient denies a desire to harm self V. Clinician's Formulation of Risk and Determination of level of Care: This is a 41-year-old female who is experiencing marital problems with her spouse. Patient overdosed on multiple Advil pills prior to her admission to the hospital. She is aware ther actions wasn't the right thing to do. She stated that she been reflecting on her behavior and stated, "This will not happen again." She stated that she will seek therapy once discharged from the hospital. Since being hospitalized the patient has consistently denied the desire to harm herself. Additionally, she has become insightful about how to better address her current issues. Patient is not impaired by substance. She is able to take care of her ADLs and is not at imminent risk of harm to self or others. Consequently, it is the opinion of the treatment team that the patient is at low risk of suicide and does not meet criteria to continue an involuntary psychiatric hold. Estimation of Imminent Risk: Low due to the above explanation. Determination of Level of Care based on Suicide Risk: Outpatient follow-up. Narrative description of clinical reasoning. (This must be completed on all patients): . Plan and Interventions based on Suicide Risk: This patient will likely be stepped down to an outpatient mental health center in the community upon discharge and follow-up within 7 days of her discharge from the hospital. VII. Discharge/After Hours Support Plan: Patient can return back to the ER, call 911 or crisis line if symptoms of depression, anxiety, suicidality return. Recommendation/Plan: Rescind 1013. Discussed generalized coping skills with patient. Discussed the importance to abstain from alcohol consumption while . Patient given outpatient referral services [facility] the [facility]. Patient prefer therapy at this time. Patient can be discharged to her friend Vicky Back [phone]. Patient advised not to take NSAIDs till the is complete Disposition: DC-01 TO HOME OR SELFCARE Time spent for discharge: 32 minutes Core Measure Documentation - Palliative Care Palliative Care/ Comfort Measures: Not Applicable - Core Measures Any of the following diagnoses?: none Exam - Constitutional Vitals: Temp Pulse Resp BP Pulse Ox 98.8 F 98 H 18 135/77 96 04/25/17 23:57 04/26/17 06:33 04/25/17 23:57 04/26/17 06:33 04/25/17 23:57 Plan Activity: no restrictions Diet: regular Follow up with: PRIMARY CAREMD [Primary Care Provider] - 3-5 Days
[2017-04-26] MEDS: PRENATAL VITAMIN PO SCH (10:34)
[2017-04-26] MEDS: LOVENOX SUB-Q SCH (10:34)
[2017-04-26 10:38] VITALS: BP 130/80
== END 2017-04-26 11:30 | disposition home or self-care (01) | DRG 781 ==
LOC: ED 18:37 → 4A 21:40 → 3A 04-24 18:47
PROVIDERS: ADMIT Internal Medicine; ATTEND Internal Medicine
DX: O9A.212 Injury, poisoning and certain other consequences of external causes complicating pregnancy, second trimester (principal); R45.851 Suicidal ideations; Z68.43 Body mass index [BMI] 50.0-59.9, adult; T39.312A Poisoning by propionic acid derivatives, intentional self-harm, initial encounter; F32.9 Major depressive disorder, single episode, unspecified; F10.129 Alcohol abuse with intoxication, unspecified; O99.312 Alcohol use complicating pregnancy, second trimester; D72.829 Elevated white blood cell count, unspecified; O99.212 Obesity complicating pregnancy, second trimester; E66.01 Morbid (severe) obesity due to excess calories; O16.2 Unspecified maternal hypertension, second trimester; O99.342 Other mental disorders complicating pregnancy, second trimester; O24.912 Unspecified diabetes mellitus in pregnancy, second trimester; Z88.1 Allergy status to other antibiotic agents; Y92.89 Other specified places as the place of occurrence of the external cause; Z90.49 Acquired absence of other specified parts of digestive tract; Z3A.23 23 weeks gestation of pregnancy
CPT/HCPCS: 36415; 76805; 76815; 80048; 80307; 80320; 81001; 81025; 82310; 82962; 83036; 83735; 83930; 84702; 85007; 85025; 87040; 93005; 93010; G0480; J0696; J1630; J1650; J1815; J2405; J3480; J7030

== ENCOUNTER 2017-07-22 21:28 | Inpatient (IN) | payer OTHER ==
[2017-07-22] MEDS ORDERED: ZOFRAN IV PRN (21:52)
[2017-07-22] MEDS ORDERED: BRETHINE IVP PRN (21:52)
[2017-07-22] MEDS ORDERED: CERVIDIL VG ONE (21:52)
[2017-07-22] MEDS ORDERED: ePHEDrine SULFATE IV PRN (21:52)
[2017-07-22] MEDS ORDERED: NARCAN 0.4 MG/1 ML IV PRN (21:52)
[2017-07-22] MEDS ORDERED: BRETHINE SUB-Q PRN (21:52)
[2017-07-22] MEDS ORDERED: STADOL IV PRN (21:52)
[2017-07-22] MEDS ORDERED: XYLOCAINE 2% INFILTRATI ONE (21:52)
[2017-07-22] MEDS ORDERED: MINERAL OIL PO PRN (21:52)
[2017-07-22] MEDS ORDERED: PHENERGAN PO PRN (21:52)
[2017-07-22] MEDS ORDERED: PITOCin/NS 20 UNIT/1000ML DRIP 20 UNITS/1,000 ML BAG IV SCH (22:00)
[2017-07-22] MEDS ORDERED: PITOCin/NS 30 UNIT/500ML 30 UNITS/500 ML BAG IV SCH (22:00)
[2017-07-22] MEDS ORDERED: D50W (25GM) Syringe IV PRN (22:06)
[2017-07-22] MEDS ORDERED: SUBLIMAZE IV PRN (22:10)
--- NOTE | 2017-07-22 22:17 | History and Physical Report ---
History of Present Illness Date of examination: 07/22/17 Date of admission: 07/22/17 21:28 Chief complaint: Here for induction of labor History of present illness: This is a 41 yo at 37 weeks here for IOL for chronic HTN, DM, and IUGR. She was recommended by [facility] for IOL. She is a late to care at 28 weeks with previous admissison in hospital for suicide attempt. she is also a class B DM on insulin. She also has chronic HTN on labetolol. She has been seeing [facility] for AMA, morbid obesity, chronic HTN and DM. She has also had alchol exposure as well. She has a hx of sigmoid colectomy. She was dx at 29 weeks with IUGR 6% . She was referred to breast surgeon with dx of breast mass but has not made a visit. She is here today for initation of IOL. She denies any suicide nor homicidal ideation. She currently has boyfriend and sister in room. Past History Past Medical History: hypertension, diabetes, other (suicide attempt ) Past Surgical History: colorectal surgery, other (cholestectomy ) Family/Genetic History: diabetes, hypertension Social history: single, alcohol abuse. denies: smoking, prescription drug abuse - Obstetrical History Expected Date of Delivery: 08/12/17 Actual Gestation: 37 Week(s) 0 Day(s) : 1 Para: 0 Hx # Term Pregnancies: 0 Number of Pregnancies: 0 Spontaneous Abortions: 0 Induced : 0 Number of Living Children: 0 Medications and Allergies Allergies Allergy/AdvReac Type Severity Reaction Status Date / Time metronidazole [From Flagyl] Allergy Unknown Verified 04/19/17 18:41 Home Medications Medication Instructions Recorded Confirmed Last Taken Type Amlodipine Besylate [Norvasc] 10 mg PO DAILY 04/20/17 04/22/17 1 Day Ago History ~04/21/17 Losartan/Hydrochlorothiazide 1 each PO DAILY 04/20/17 04/22/17 1 Day Ago History [Losartan-Hctz 100-25 mg Tab] ~04/21/17 glipiZIDE [Glipizide] 10 mg PO DAILY 04/20/17 04/22/17 1 Day Ago History ~04/21/17 Active Meds: Active Medications Butorphanol Tartrate (Stadol) 2 mg IV Q2H PRN PRN Reason: Pain , Severe (7-10) Dinoprostone (Cervidil) 10 mg VG ONCE ONE Stop: 07/22/17 21:53 Ephedrine Sulfate (Ephedrine Sulfate) 10 mg IV Q2M PRN PRN Reason: Hypotension Fentanyl (Sublimaze) 100 mcg IV Q2H PRN PRN Reason: Labor Pain Oxytocin/Sodium Chloride (Pitocin/Ns 20 Unit/1000ml Drip) 20 units in 1,000 mls @ 125 mls/hr IV DIRECT CHANTAL Oxytocin/Sodium Chloride (Pitocin/Ns 30 Unit/500ml) 30 units in 500 mls @ 1 mls /hr IV TITR CHANTAL; Protocol Labetalol HCl (Normodyne) 100 mg PO BID CHANTAL Lidocaine (Xylocaine 2%) 20 ml INFILTRATI ONCE ONE Stop: 07/22/17 21:53 Mineral Oil (Mineral Oil) 30 ml PO QHS PRN PRN Reason: Constipation Naloxone HCl (Narcan 0.4 Mg/1 Ml) 0.1 mg IV Q2MIN PRN PRN Reason: Res Rate </= 8 or 02 SAT < 92% Ondansetron HCl (Zofran) 4 mg IV Q8H PRN PRN Reason: Nausea And Vomiting Promethazine HCl (Phenergan) 25 mg PO Q6H PRN PRN Reason: Nausea And Vomiting Terbutaline Sulfate (Brethine) 0.25 mg SUB-Q ONCE PRN PRN Reason: Hyperstimulation/Hypertonicity Terbutaline Sulfate (Brethine) 0.25 mg IVP ONCE PRN PRN Reason: Hyperstimulation/Hypertonicity Review of Systems All systems: negative - Physical Exam Breasts: Positive: deferred Cardiovascular: Regular rate, Normal S1 Lungs: Positive: Clear to auscultation, Normal air movement Abdomen: Positive: normal appearance, soft, normal bowel sounds. Negative: distention, tenderness, guarding Genitourinary (Female): Positive: normal external genitalia, normal perenium Vulva: both: normal Vagina: Positive: normal moisture Uterus: Positive: normal size Adnexa: both: normal Extremities: Positive: normal Deep Tendon Reflex Grade: Normal +2 - Obstetrical FHR: category 1 Cervical Dilatation: 0 Results All other labs normal. Assessment and Plan A/P HD#1 IOL at 37 weeks for IUGR, chronic HTN and class B DM admit to labor and delivery initiation with cervidiil class B DM sliding scale ( Fingerstick every 2hrs) continuous monitor offer epidrual at appropriate time expect vaginal delivery
[2017-07-22] MEDS: NORMODYNE PO SCH (22:34)
[2017-07-22 23:11] LABS: Hematocrit 35.8 % (30.3-42.9); Hemoglobin 11.8 gm/dl (10.1-14.3); Mean Corpuscular HGB Conc 33 % (30-34); Mean Corpuscular Hemoglobin 29 pg (28-32); Mean Corpuscular Volume 88 fl (79-97); Platelet Count 347 K/mm3 (140-440); Red Blood Count 4.08 M/mm3 (3.65-5.03); Red Cell Distribution Width 14.2 % (13.2-15.2)
[2017-07-23 00:34] LABS: Amphetamine Screen,Urine PRESUMPTIVE NEGATIVE; Benzodiazepines Screen,Urine PRESUMPTIVE NEGATIVE; Cannabinoid Screen,Urine PRESUMPTIVE NEGATIVE; Cocaine Screen,Urine PRESUMPTIVE NEGATIVE; Methadone Screen,Urine PRESUMPTIVE NEGATIVE; Opiate Screen,Urine PRESUMPTIVE NEGATIVE
[2017-07-23] MEDS: NORMODYNE PO SCH ×2 (10:54→22:20)
[2017-07-23] MEDS ORDERED: CERVIDIL VG NR (16:00)
[2017-07-23] MEDS: HumuLIN R SUB-Q SCH (17:02)
[2017-07-23] MEDS ORDERED: AMBIEN PO PRN (23:39)
[2017-07-24] MEDS: HumuLIN R SUB-Q SCH ×2 (01:28→18:00)
[2017-07-24] MEDS: NORMOSOL-R PH 7.4 1,000 ML IV SCH ×2 (08:25→18:16)
[2017-07-24] MEDS ORDERED: BICITRA PO ONE (11:21)
[2017-07-24] MEDS ORDERED: REGLAN IV ONE (11:21)
[2017-07-24] MEDS ORDERED: PEPCID IV ONE (11:21)
--- NOTE | 2017-07-24 11:30 | Event Note ---
Date: 07/24/17 Pt's cervix remains one centimeter after two days of cervical ripening. Pt's nurses have been unable to monitor the FHTs secondary the patient's adiposity. I cannot use cytotec or pitocin to continue to augment the patient's labor without being able to consistently monitor FHTs. The situation was discussed with the patient with the decision to proceed with primary delivery. Anesthesia aware.
--- NOTE | 2017-07-24 11:46 | Anesthesia Consultation ---
Anesthesia Consult and Med Hx Date of service: 07/24/17 - Airway Anesthetic Teeth Evaluation: Good ROM Head & Neck: Adequate Mental/Hyoid Distance: Adequate Mallampati Class: Class III Intubation Access Assessment: Possibly Difficult - Pre-Operative Health Status ASA Pre-Surgery Classification: ASA3 Proposed Anesthetic Plan: Epidural, Spinal - Pulmonary Hx Asthma: No COPD: No Hx Pneumonia: No - Cardiovascular System Hx Hypertension: Yes (2009) - Central Nervous System Hx Seizures: No Hx Psychiatric Problems: No - Endocrine Hx Renal Disease: No Hx End Stage Renal Disease: No Hx Insulin Dependent Diabetes: Yes Hx Hypothyroidism: No Hx Hyperthyroidism: No - Hematic Hx Anemia: No Hx Sickle Cell Disease: No - Other Systems Hx Alcohol Use: Yes Hx Obesity: Yes (BMI 44.9)
[2017-07-24] MEDS ORDERED: PHENERGAN PO PRN (11:47)
[2017-07-24] MEDS ORDERED: PHENERGAN PR PRN (11:47)
[2017-07-24] MEDS ORDERED: DILAUDID IV PRN (11:47)
[2017-07-24] MEDS ORDERED: NARCAN 0.4 MG/1 ML IV PRN ×2 (11:47→15:34)
[2017-07-24] MEDS ORDERED: BENADRYL IV PRN (11:47)
--- NOTE | 2017-07-24 11:47 | Anesthesia Day of Surgery ---
Anesthesia Day of Surgery - Day of Surgery Patient Examined: Yes Patient H&P Reviewed: Yes Patient is NPO: Yes Beta Blockers: Yes
[2017-07-24] MEDS ORDERED: TORADOL IV PRN (11:48)
[2017-07-24] MEDS ORDERED: NORMOSOL-R PH 7.4 1,000 ML IV SCH (12:00)
[2017-07-24] MEDS ORDERED: ANCEF/STERILE WATER 2 GM/20 ML 2 GM/20 ML SYRINGE IV NR (12:00)
[2017-07-24] MEDS ORDERED: PITOCin/NS 20 UNIT/1000ML DRIP 20 UNITS/1,000 ML BAG IV SCH ×2 (12:00→15:34)
[2017-07-24] MEDS ORDERED: SODIUM CHLORIDE FLUSH SYRINGE 10 ML IV NR ×2 (12:00→15:34)
[2017-07-24] MEDS ORDERED: ANCEF/STERILE WATER 2 GM/20 ML IV ONE (12:12)
[2017-07-24] MEDS ORDERED: NACL 0.9% IR ONE (12:18)
[2017-07-24] MEDS ORDERED: WATER FOR IRRIG STERILE IR ONE (12:18)
[2017-07-24] MEDS ORDERED: NEO SYNEPHRINE/NS Syringe(OR USE) IV ONE ×2 (12:33→13:12)
[2017-07-24] MEDS ORDERED: ASTRAMORPH PF 10MG/10ML ONE (13:13)
--- NOTE | 2017-07-24 14:08 | Operative Report ---
Operative Report Operative Report: Date of procedure: July 24, 2017 Preoperative diagnosis: 1) IUP at 37w2d 2) Inability to monitor status 3) Morbid Obesity BMI 44 4) Class B DM 5) Chronic HTN 6) AMA 7) IUGR Postoperative diagnosis: Same Procedure: Primary low transverse section Surgeon: Cindy Vargas M.D. Anesthesia: Spinal-Epidural Findings: 1) Viable , Apgars 5and 9, weight 2460g, (5 lb 7 oz) in cephalic presentation 2) Normal-appearing uterus ovaries and tubes Estimated blood loss: 800 mL IV fluids: 1500 mL Urine output: 100 mL, clear at the end of the procedure Drains: Sidhu to gravity Specimens: Placenta to pathology Complications: None. Counts correct x 3 Disposition: Stable to PACU Indication for procedure: Pt is a 41 year old -[place] female primigravida at 37w2d with Class B DM, Chronic HTN, AMA, IUGR who presented to labor and delivery for induction of labor. Due to her habitus, we were unable to monitor heart tones consistently negating the ability to safely continue induction of labor. The decision was made to proceed with primary section. Operation in detail: After the risks, benefits, alternatives and complications were explained to the patient she gave informed consent for the procedure. She was subsequently taken to the operating room where spinal-epidural anesthesia was noted to be adequate. She was subsequently placed in the dorsal supine position with leftward tilt and prepped and draped in a normal sterile fashion. heart tones were noted to be in the 130s prior to incision. A timeout was performed. A Pfannenstiel skin incision was made with the knife and carried down to the layer of the fascia with the Bovie. The fascia was incised in the midline and the fascial incision was extended bilaterally with the Bovie. Attention was then turned to the superior aspect of the incision which was grasped with two Kochers, tented up, and dissected off the rectus muscles. Attention was then turned to the inferior aspect of the incision which was grasped with two Kochers , tented up and dissected off the rectus muscles. The rectus muscles were then in the midline. The peritoneum was then entered bluntly. The peritoneal incision was extended with good visualization of the bladder. The peritoneal incision was then stretched. An Ezio self-retaining retractor was placed for visualization. The bladder blade was placed. The vesicouterine peritoneum was grasped with smooth pickups and incised with Metzenbaum scissors. Metzenbaum scissors were used to extend the incision bilaterally. The bladder flap was then created digitally and the bladder blade was replaced. A transverse incision was made in the lower uterine segment with a knife and extended bilaterally with the bandage scissors. The head was delivered without difficulty followed by shoulders and body. was bulb suctioned at delivery. The cord was clamped and cut and the was handed to NICU staff in attendance. Cord blood was collected. The placenta was then delivered manually. The uterus was then exteriorized and cleared of all clots and debris. The hysterotomy was then reapproximated with 0 Vicryl in a running locked fashion. A second layer of the same suture was used in imbricating fashion. The hysterotomy was inspected and hemostasis was noted. The Ezio self-retaining retractor was removed. The gutters were irrigated and cleared of all clots and debris. The hysterotomy was again inspected and noted to be hemostatic. Surgicel was placed over the hysterotomy. The peritoneum was reapproximated with 2-0 Vicryl in a running fashion. The fascia was reapproximated with 0 Vicryl in a running fashion. The subcutaneous tissue was reapproximated with 3- 0 Vicryl and 2-0 Vicryl in two layers. The skin was reapproximated with jitendra. The incision was then covered with a pressure dressing. The procedure was then ended. The patient tolerated the procedure well and was taken to the PACU in stable condition. All instrument, lap, and needle counts were correct 3.
--- NOTE | 2017-07-24 14:08 | Procedure Note ---
OB Delivery Note - Delivery Date of Delivery: 07/24/17 Surgeon: AROLDO SHRESTHA Gear Grinder: VARINDER DE LOS SANTOS Estimated blood loss: other (800 mL) - Section Preop diagnosis: other (Inability to monitor heart tones, morbid obesity, diabetes, chronic HTN, AMA, IUGR) Postop diagnosis: same section procedure: section, primary low transverse Disposition: PACU Complications: none Narrative: Please see operative note. - A at 1 minute: 5 at 5 minutes: 9 Infant Gender: Female (2460g (5lb 7oz) @ 1248 pm)
[2017-07-24] MEDS ORDERED: ANCEF/NS 1 GM/50 ML 1 GM/50 ML BAG IV SCH (15:34)
[2017-07-24] MEDS ORDERED: TUCKS PAD TP PRN (15:34)
[2017-07-24] MEDS ORDERED: LANSINOH TP PRN (15:34)
[2017-07-24] MEDS ORDERED: MILK OF MAGNESIA PO PRN (15:34)
[2017-07-24] MEDS ORDERED: MORPHINE IV PRN ×2 (15:34)
[2017-07-24] MEDS: MORPHINE IV PRN (16:02)
[2017-07-24] MEDS: ZOFRAN IV PRN (18:04)
[2017-07-24] MEDS: ceFAZolin 1 GM in NACL 0.9% 20 ML IV SCH (20:37)
[2017-07-24] MEDS: NORMODYNE PO SCH (22:24)
[2017-07-25 00:59] LABS: Hematocrit 35.5 % (30.3-42.9); Hemoglobin 11.6 gm/dl (10.1-14.3)
[2017-07-25] MEDS: MORPHINE IV PRN (01:12)
[2017-07-25] MEDS: HumuLIN R SUB-Q SCH ×4 (01:24→23:55)
[2017-07-25] MEDS ORDERED: CLARITIN PO ONE (02:31)
[2017-07-25] MEDS: NORMOSOL-R PH 7.4 1,000 ML IV SCH (03:05)
[2017-07-25] MEDS: ceFAZolin 1 GM in NACL 0.9% 20 ML IV SCH (04:02)
[2017-07-25] MEDS ORDERED: BOOSTRIX IM ONE (06:00)
[2017-07-25] MEDS ORDERED: M-M-R II VACCINE SUB-Q ONE (06:00)
--- NOTE | 2017-07-25 09:14 | Progress Note ---
Assessment and Plan A: POD#1 s/p primary Class B DM Hypertension AMA Morbid Obesity P: Routine advances. Regular diet Fasting and 2 hr postprandial glucose Begin Metformin tonight Optimize pain regimen Closely monitor clinical status Subjective - Subjective Date of service: 07/25/17 Principal diagnosis: s/p section , HTN, DM, AMA, Morbid Obesity Interval history: Suboptimal pain control overnight. Patient reports: appetite normal, voiding normally, pain poorly controlled, no flatus, no bowel movement : doing well, bottle feeding Objective - Vital Signs Latest vital signs: Vital Signs Temp Pulse Resp BP BP Pulse Ox 07/25/17 01:12 18 07/25/17 00:30 98.6 F 71 16 134/76 07/24/17 22:55 20 07/24/17 22:25 18 07/24/17 22:24 88 169/88 07/24/17 20:00 98.6 F 88 16 169/88 07/24/17 15:25 97.9 F 75 18 134/82 07/24/17 14:50 73 16 129/78 97 07/24/17 14:45 74 16 131/75 98 07/24/17 14:22 73 17 127/74 100 07/24/17 14:01 70 15 127/74 100 07/24/17 13:55 73 15 127/68 100 07/24/17 13:50 68 15 127/70 100 07/24/17 12:43 98.2 F 74 16 115/58 100 07/24/17 11:32 87 100 07/24/17 10:01 83 116/60 07/24/17 09:32 90 133/70 Intake and Output 07/24/17 07/25/17 07/25/17 22:59 06:59 14:59 Intake Total 1200 1000 Output Total 200 1200 Balance 1000 -200 Intake: IV 1200 1000 Normosol-R pH 7.4 1,000 1000 1000 ml @ 125 mls/hr IV DIRECT CHANTAL Rx#:[id number] Output: Urine 200 1200 Indwelling Catheter 600 Void 600 Other: Total, Output Amount 600 # Voids Void 1 - Exam Breasts: Present: deferred Cardiovascular: Present: Regular rate Lungs: Present: Clear to auscultation Abdomen: Present: soft (obese), abnormal bowel sounds (hypoactive) Extremities: Present: normal Incision: Present: dressed - Labs Labs: Abnormal lab results 07/24/17 07/25/17 07/25/17 Range/Units 17:45 01:03 06:11 POC Glucose 133 H 128 H 157 H (70-105)
[2017-07-25] MEDS: PERCOCET 5/325 PO PRN ×3 (10:44→20:57)
[2017-07-25] MEDS: NORMODYNE PO SCH ×2 (10:46→21:54)
[2017-07-25] MEDS: FEOSOL PO SCH (10:46)
--- NOTE | 2017-07-25 11:47 | Consultation ---
History of Present Illness - Reason for Consult Consult date: 07/25/17 Reason for consult: Mental Health Evaluation Requesting physician: VARINDER DE LOS SANTOS - Chief Complaint Chief complaint: "I am well" - History of Present Psychiatric Illness This is a 41 yo at 37 weeks here for IOL for chronic HTN, DM, and IUGR. Psychiatry was consulted because the patient was seen by our team on her previous admission for overdose/suicide attempt. Today the patient is calm and cooperative during the assessment. She stated that she is happy to be a new mother. She stated since her discharged from [facility] in Apr 2017, her life has been "well." She stated that her issues "stem" from her "up and down relationship" with her the father of her . She stated being in a better place "mentally" since he isn't around. She stated that she has a excellent support system (family and friends). Per collateral information from her friend Nan Najera who was at the bedside, she stated that the patient has been doing well and denies any suicide attempts by the patient since her last admission to [facility]. She stated that she will support the patient "always." The patient stated she is aware of [facility] that offers outpatient therapy. She denies SI/HI's and AVH's. She denies depression and any manic episodes in the past. She denies erratic sleep and a poor appetite. She denies recreational drug use and alcohol consumption (etoh). Medications and Allergies Allergies Allergy/AdvReac Type Severity Reaction Status Date / Time diphenhydramine Allergy Shortness Verified 07/24/17 22:50 [From Benadryl] of Breath metronidazole [From Flagyl] Allergy Unknown Verified 07/24/17 22:33 Home Medications Medication Instructions Recorded Confirmed Last Taken Type Amlodipine Besylate [Norvasc] 10 mg PO DAILY 04/20/17 07/25/17 1 Day Ago History ~04/21/17 Losartan/Hydrochlorothiazide 1 each PO DAILY 04/20/17 07/25/17 1 Day Ago History [Losartan-Hctz 100-25 mg Tab] ~04/21/17 glipiZIDE [Glipizide] 10 mg PO DAILY 04/20/17 07/25/17 1 Day Ago History ~04/21/17 Active Meds: Active Medications Dextrose (D50w (25gm) Syringe) 50 ml IV PRN PRN PRN Reason: Hypoglycemia Ferrous Sulfate (Feosol) 325 mg PO QDAY [facility] Last Admin: 07/25/17 10:46 Dose: 325 mg Hydromorphone HCl (Dilaudid) 0.5 mg IV Q4H PRN PRN Reason: breakthrough pain > 7/10 Last Admin: 07/24/17 14:50 Dose: 0.5 mg Oxytocin/Sodium Chloride (Pitocin/Ns 20 Unit/1000ml Drip) 20 units in 1,000 mls @ 125 mls/hr IV DIRECT CHANTAL Parenteral Electrolytes (Normosol-R Ph 7.4) 1,000 mls @ 125 mls/hr IV DIRECT CHANTAL Last Admin: 07/25/17 03:05 Dose: 125 mls/hr Oxytocin/Sodium Chloride (Pitocin/Ns 20 Unit/1000ml Drip) 20 units in 1,000 mls @ 250 mls/hr IV DIRECT CHANTAL Ibuprofen (Motrin) 800 mg PO Q6H PRN PRN Reason: Pain, Mild (1-3) Insulin Human Regular (Humulin R) 0 units SUB-Q Q6HR [facility]; Protocol Last Admin: 07/25/17 06:17 Dose: 2 units Ketorolac Tromethamine (Toradol) 30 mg IV Q6H PRN PRN Reason: Pain, Moderate (4-6) Stop: 07/29/17 11:47 Last Admin: 07/24/17 22:25 Dose: 30 mg Labetalol HCl (Normodyne) 100 mg PO BID [facility] Last Admin: 07/25/17 10:46 Dose: 100 mg Magnesium Hydroxide (Milk Of Magnesia) 30 ml PO QHS PRN PRN Reason: Constip Unrelieved By Senna Metformin HCl (Glucophage) 1,000 mg PO BIDDIAB [facility] Morphine Sulfate (Morphine) 4 mg IV Q4H PRN PRN Reason: Pain , Severe (7-10) Morphine Sulfate (Morphine) 2 mg IV Q4H PRN PRN Reason: Pain , Severe (7-10) Last Admin: 07/25/17 01:12 Dose: 2 mg Multi-Ingredient Ointment (Lansinoh) 1 applic TP PRN PRN PRN Reason: dryness/cracking Naloxone HCl (Narcan 0.4 Mg/1 Ml) 0.1 mg IV Q2MIN PRN PRN Reason: Res Rate </= 8 or 02 SAT < 92% Naloxone HCl (Narcan 0.4 Mg/1 Ml) 0.2 mg IV Q2MIN PRN PRN Reason: Res Rate </= 8 or 02 SAT < 92% Naloxone HCl (Narcan 0.4 Mg/1 Ml) 0.1 mg IV Q2MIN PRN PRN Reason: Res Rate </= 8 or 02 SAT < 92% Ondansetron HCl (Zofran) 4 mg IV Q8H PRN PRN Reason: Nausea And Vomiting Ondansetron HCl (Zofran) 4 mg IV Q8H PRN PRN Reason: Nausea And Vomiting Last Admin: 07/24/17 18:04 Dose: 4 mg Oxycodone/Acetaminophen (Percocet 5/325) 2 tab PO Q4H PRN PRN Reason: Pain, Moderate (4-6) Last Admin: 07/25/17 10:44 Dose: 2 tab Promethazine HCl (Phenergan) 25 mg PO Q6H PRN PRN Reason: Nausea And Vomiting Simethicone (Mylicon) 80 mg PO Q6H PRN PRN Reason: Gas pain Sodium Chloride (Sodium Chloride Flush Syringe 10 Ml) 10 ml IV PRN NR Stop: 07/25/17 15:33 Witch Monse/Glycerin (Tucks Pad) 1 each TP PRN PRN PRN Reason: Hemorrhoids/cleansing/soothing Past psychiatric history - Past Medical History Past Medical History: diabetes Past Surgical History: - past Psychiatric treatment and history psychiatric treatment history: Prior overdose/suicide attempt in Apr 2017. Denies a fam psy hx. - Social History Social history: lives with family Mental Status Exam - Vital signs Last Vital Signs Temp 98.7 F 07/25/17 08:58 Pulse 88 07/25/17 10:46 Resp 20 07/25/17 08:58 BP 124/67 07/25/17 10:46 Pulse Ox 97 07/25/17 08:58 - Exam Narrative exam: MSE: Appearance: calm, cooperative Behavior: regular eye contact Speech: regular rate and tone Mood: "okay" Affect: congruent to mood Thought Process: linear Thought Content: denies SI/HI's and AVH's Motor Activity: sitting up in bed Cognition: A/O x3 Insight: appropriate Judgment: appropriate Results Result Diagrams: 07/25/17 00:43 Abnormal lab results 07/24/17 07/25/17 07/25/17 Range/Units 17:45 01:03 06:11 POC Glucose 133 H 128 H 157 H (70-105) All other labs normal. Assessment and Plan Assessment and plan: Impression: Today the patient is calm and cooperative during the assessment. The patient denies SI/HI's and AVH's. The patient is no threat to self or others. Recommendation/Plan: The patient is aware of [facility] for outpatient therapy (family). Psychiatry sign off.
[2017-07-25] MEDS: GLUCOPHAGE PO SCH (16:51)
[2017-07-25] MEDS: MOTRIN PO PRN (20:57)
[2017-07-25] MEDS: MYLICON PO PRN (20:57)
[2017-07-26] MEDS: MYLICON PO PRN (03:50)
[2017-07-26] MEDS: PERCOCET 5/325 PO PRN ×2 (03:50→22:46)
[2017-07-26] MEDS: MOTRIN PO PRN ×2 (03:50→13:10)
[2017-07-26] MEDS: HumuLIN R SUB-Q SCH ×2 (05:45→12:10)
[2017-07-26] MEDS: GLUCOPHAGE PO SCH ×2 (09:00→17:41)
[2017-07-26] MEDS: FEOSOL PO SCH (09:37)
[2017-07-26] MEDS: NORMODYNE PO SCH ×2 (09:37→22:47)
--- NOTE | 2017-07-26 17:42 | Progress Note ---
Assessment and Plan A: POD#2 s/p primary Class B DM Hypertension AMA Morbid Obesity P: Routine advances. Encourage ambulation. Consider discharge tomorrow. Subjective - Subjective Date of service: 07/26/17 Principal diagnosis: s/p section , HTN, DM, AMA, Morbid Obesity Interval history: No overnight events. Pain control improved. + flatus. Minimal lochia. Patient reports: appetite normal, voiding normally, pain well controlled, flatus , ambulating normally, no dizzy ambulation, no bowel movement, no nauseated Dennis: doing well Objective - Vital Signs Latest vital signs: Vital Signs Temp Pulse Resp BP BP Pulse Ox 07/26/17 13:08 98.2 F 96 H 20 131/76 95 07/26/17 09:20 98.6 F 88 20 131/74 98 07/26/17 04:00 98.7 F 69 16 131/72 07/26/17 00:30 98.6 F 79 18 127/82 07/25/17 21:54 109 H 141/71 07/25/17 20:30 98.6 F 109 H 16 141/71 Intake and Output 07/26/17 07/26/17 07/26/17 06:59 14:59 22:59 Intake Total 300 720 Balance 300 720 Intake: Oral 720 Intake, Free Water 300 Other: Total, Intake Amount 120 # Voids Void 1 - Exam Breasts: Present: deferred Cardiovascular: Present: Regular rate Lungs: Present: Clear to auscultation Abdomen: Present: soft (obese ), abnormal bowel sounds (hypoactive ) Uterus: Present: fundal height below umbilicus Extremities: Present: edema (trace) Incision: Present: intact (with jitendra ) - Labs Labs: Abnormal lab results 07/26/17 07/26/17 07/26/17 Range/Units 00:02 05:30 08:20 POC Glucose 144 H 146 H (70-105) Fasting Glucose 138 H (65-100) mg/dL 07/26/17 Range/Units 12:37 POC Glucose 113 H (70-105) Fasting Glucose (65-100) mg/dL
[2017-07-27] MEDS: HumuLIN R SUB-Q SCH ×4 (01:34→18:40)
[2017-07-27] MEDS: PERCOCET 5/325 PO PRN ×2 (05:26→13:17)
[2017-07-27] MEDS: FEOSOL PO SCH (09:02)
[2017-07-27] MEDS: NORMODYNE PO SCH ×2 (09:02→22:00)
[2017-07-27] MEDS: GLUCOPHAGE PO SCH ×2 (09:03→16:41)
--- NOTE | 2017-07-27 13:09 | Progress Note ---
Assessment and Plan A: POD#3 s/p primary Class B DM Hypertension AMA Morbid Obesity Suboptimal pain control P: Optimize pain regimen magnesium citrate Discharge home tomorrow morning. Subjective - Subjective Date of service: 07/27/17 Principal diagnosis: s/p section , HTN, DM, AMA, Morbid Obesity Interval history: No overnight events. Pt is behind on her pain control currently. + flatus. Minimal lochia. Patient reports: appetite normal, voiding normally, pain well controlled, flatus , ambulating normally, no bowel movement, no nauseated [place]: doing well, bottle feeding Objective - Vital Signs Latest vital signs: Vital Signs Temp Pulse Resp BP BP Pulse Ox 07/27/17 09:02 80 145/85 07/27/17 08:30 98.3 F 80 20 145/85 100 07/27/17 06:09 99.1 F 94 H 20 124/61 96 07/27/17 01:33 98.0 F 89 20 146/66 07/26/17 20:13 98.5 F 99 H 20 157/94 97 07/26/17 17:46 98.7 F 91 H 20 144/89 99 07/26/17 17:15 98.7 F 91 H 20 144/89 99 07/26/17 13:08 98.2 F 96 H 18 131/76 131/76 95 Intake and Output 07/26/17 07/27/17 07/27/17 22:59 06:59 14:59 Intake Total 840 480 Balance 840 480 Intake: Oral 480 480 Intake, Free Water 360 Other: Total, Intake Amount 480 480 # Voids Void 1 2 - Exam Breasts: Present: deferred Cardiovascular: Present: Regular rate Lungs: Present: Clear to auscultation Abdomen: Present: soft (obese) Uterus: Present: fundal height below umbilicus Extremities: Present: edema (trace) Incision: Present: intact - Labs Labs: Abnormal lab results 07/26/17 07/27/17 Range/Units 18:15 01:33 POC Glucose 113 H 149 H (70-105)
--- NOTE | 2017-07-27 13:14 | Discharge Summary ---
Providers - Providers Date of Admission: 07/22/17 21:28 Date of discharge: 07/27/17 Attending physician: VARINDER DE LOS SANTOS MD 07/22/17 21:57 Consult to Case Management [CONS] Routine Services Needed at Discharge: Deputy General Counsel Comment:: hx of suicide attempt, alchohol exposure 07/24/17 16:09 Consult to Mental Health [CONS] Urgent Reason For Exam: attempted suicide x2 during Place consult to:: [facility] Notified:: Laure Phone number called:: [phone] Primary care physician: VARINDER DE LOS SANTOS MD Hospitalization Reason for admission: induction of labor Delivery: Procedure: section, primary low transverse Procedure details: Please see operative note. Incision: intact (with jitendra ) complications: none Discharge diagnosis: IUP at term delivered baby: female Hospital course: Pt was admitted for induction of labor secondary to multiple medical comorbidities. She ultimately had a primary section which she tolerated well. Her postoperative course was complicated by suboptimal pain control and she met discharge criteria on POD#4. She will follow up in 10 days for staple removal. Condition at discharge: Stable Disposition: DC-01 TO HOME OR SELFCARE - Discharge Diagnoses (1) Morbid obesity Status: Acute (2) S/P section Status: Acute (3) Diabetes mellitus affecting Status: Acute Qualifiers: Trimester: third trimester Qualified Code(s): O24.913 - Unspecified diabetes mellitus in , third trimester (4) AMA (advanced maternal age) primigravida 35+ Status: Acute Qualifiers: Trimester: third trimester Qualified Code(s): O09.513 - Supervision of elderly primigravida, third trimester Plan - Discharge Medications Prescriptions: Clindamycin [Clindamycin CAP] 300 mg PO Q6H #28 capsule Docusate Sodium [Colace] 100 mg PO BID PRN #60 capsule PRN Reason: Constipation Ibuprofen [Motrin] 800 mg PO Q8HR PRN #30 tablet PRN Reason: Pain metFORMIN [Glucophage] 1,000 mg PO BID #120 tablet oxyCODONE /ACETAMINOPHEN [Percocet 5/325] 1 tab PO Q6HR PRN #40 tablet PRN Reason: Pain - Provider Discharge Summary Activity: routine, no sex for 6 weeks, no heavy lifting 4 weeks, no strenuous exercise Diet: routine Instructions: routine Additional instructions: [] Smoking cessation referral if applicable(refer to patient education folder for contact #) [] Refer to [facility] Booklet Call your doctor immediately for: * Fever > 100.5 * Heavy vaginal bleeding ( >1 pad per hour) * Severe persistent headache * Shortness of breath * Reddened, hot, painful area to leg or breast * Drainage or odor from incision. * Keep incision clean and dry at all times and follow doctor's instructions regarding bathing/showering - Follow up plan Follow up: AROLDO SHRESTHA MD [Staff Physician] - 08/02/17 (staple removal - please call for appt )
[2017-07-27] MEDS: MOTRIN PO PRN (13:17)
[2017-07-27] MEDS ORDERED: CITRATE OF MAGNESIA PO ONE (14:00)
[2017-07-27] MEDS: ZOFRAN IV PRN (20:56)
[2017-07-28] MEDS: HumuLIN R SUB-Q SCH ×3 (00:31→17:20)
[2017-07-28] MEDS: PERCOCET 5/325 PO PRN ×2 (01:30→11:30)
[2017-07-28] MEDS: MOTRIN PO PRN (06:04)
[2017-07-28] MEDS: FEOSOL PO SCH (09:15)
[2017-07-28] MEDS: GLUCOPHAGE PO SCH (09:15)
[2017-07-28] MEDS: NORMODYNE PO SCH ×2 (10:00→10:15)
[2017-07-28 17:15] VITALS: BP 146/80
== END 2017-07-28 14:00 | disposition home or self-care (01) | DRG 765 ==
LOC: LD 21:28 → OB 07-24 15:32
PROVIDERS: ADMIT Obstetrics & Gynecology; ATTEND Obstetrics & Gynecology
PROC: 3E0P7VZ Introduction of Hormone into Female Reproductive, Via Natural or Artificial Opening (ICD-10-PCS; 2017-07-22)
PROC: 10D00Z1 Extraction of Products of Conception, Low, Open Approach (ICD-10-PCS; principal; 2017-07-24)
PROC: 3E0234Z Introduction of Serum, Toxoid and Vaccine into Muscle, Percutaneous Approach (ICD-10-PCS; 2017-07-25)
DX: O99.214 Obesity complicating childbirth (principal); Z68.41 Body mass index [BMI] 40.0-44.9, adult; O36.5930 Maternal care for other known or suspected poor fetal growth, third trimester, not applicable or unspecified; O24.12 Pre-existing type 2 diabetes mellitus, in childbirth; O10.92 Unspecified pre-existing hypertension complicating childbirth; Z3A.37 37 weeks gestation of pregnancy; Z37.0 Single live birth; E66.01 Morbid (severe) obesity due to excess calories; Z23 Encounter for immunization; E11.9 Type 2 diabetes mellitus without complications; Z91.5 Personal history of self-harm; Z82.49 Family history of ischemic heart disease and other diseases of the circulatory system; Z83.3 Family history of diabetes mellitus; Z90.49 Acquired absence of other specified parts of digestive tract; Z88.8 Allergy status to other drugs, medicaments and biological substances; Z79.4 Long term (current) use of insulin; Z72.89 Other problems related to lifestyle; O99.314 Alcohol use complicating childbirth
CPT/HCPCS: 36415; 59200; 80307; 82947; 82962; 85014; 85018; 85027; 86592; 86850; 86900; 86901; 88307; 99211; G0463; J0690; J1170; J1815; J1885; J2270; J2274; J2370; J2405; J2590; J2765; Q0169

== ENCOUNTER 2017-08-07 08:16 | Outpatient (CLI) | payer MEDICAID ==
[2017-08-07] MEDS ORDERED: XYLOCAINE TOPICAL 2% 5ML ONE (08:28)
[2017-08-07] MEDS ORDERED: XYLOCAINE TOPICAL 2% 5ML TP ONE (08:46)
== END 2017-08-07 08:17 | disposition home or self-care (01) ==
LOC: WOUND 08:16
PROVIDERS: ATTEND Nurse Practitioner
DX: T81.31XA Disruption of external operation (surgical) wound, not elsewhere classified, initial encounter (principal); I10 Essential (primary) hypertension; Y83.8 Other surgical procedures as the cause of abnormal reaction of the patient, or of later complication, without mention of misadventure at the time of the procedure; Y92.89 Other specified places as the place of occurrence of the external cause
CPT/HCPCS: 11042; G0463; 99214